=== PATIENT | female | born 1945 | race Caucasian/White ===

== ENCOUNTER 2016-04-18 05:39 | Inpatient (IN) | payer OTHER, MEDICARE ==
[2016-04-18] MEDS ORDERED: CHLORHEXIDINE GLUC HIBICLENS 118 ML BTL TP ONE (06:00)
[2016-04-18] MEDS ORDERED: ceFAZolin 2 GM/DEXTROSE 100 ML IV ONE (06:00)
[2016-04-18] MEDS ORDERED: DEXAMETHASONE 10 MG/ML VIAL IVP ONE (06:00)
[2016-04-18] MEDS ORDERED: LIDOCAINE 1% 5 ML SDV ID PRN (06:07)
[2016-04-18] MEDS ORDERED: LR 1,000 ML IV ONE (06:07)
[2016-04-18 06:53] LABS: % IMMATURE GRANULYOCYTES 0.3 % (0.0-1.1); ABSOLUTE IMMATURE GRANULOCYTES 0.02 10^3/uL (0.00-0.10); ADD DIFF? NO; ADD MORPH? NO; ADD SCAN? NO; ATYPICAL LYMPHOCYTE FLAG 0 (0-99); FRAGMENT RBC FLAG 0 (0-99); HEMATOCRIT 39.9 % (38.0-47.0); HEMOGLOBIN 13.5 g/dL (12.6-16.3); LEFT SHIFT FLG 0 (0-99); LIPEMIA HEMOLYSIS FLAG 90 (0-99); MEAN CELL HEMOGLOBIN 30.5 pg (27.9-34.1); MEAN CELL HEMOGLOBIN CONCENTR. 33.8 g/dL (32.4-36.7); MEAN CELL VOLUME 90.3 fL (81.5-99.8); MEAN PLATELET VOLUME 9.2 fL (8.7-11.7); PLATELET CLUMPS FLAG 0 (0-99); PLATELET COUNT 267 10^3/uL (150-400); RED BLOOD CELL COUNT 4.42 10^6/uL (4.18-5.33); RED CELL DISTRIBUTION WIDTH 12.8 % (11.5-15.2)
[2016-04-18] MEDS ORDERED: BUPIVACAINE/EPI 0.25% 30 ML SDV ONE (07:00)
[2016-04-18] MEDS ORDERED: BACITRACIN 50,000 UNITS/10 ML SYR IRR ONE (07:00)
[2016-04-18] MEDS ORDERED: THROMBIN (RECOMBINANT) 5,000 UNIT VIAL TP ONE (07:00)
[2016-04-18] MEDS ORDERED: ALBUMIN 5% 250 ML BOTTLE IV ONE (07:01)
[2016-04-18] MEDS ORDERED: PROPOFOL/EMULSION 500 MG/50 ML BOTTLE IV ONE ×2 (07:05→07:11)
[2016-04-18] MEDS ORDERED: fentaNYL 250 MCG/5 ML INJ ONE (07:05)
[2016-04-18] MEDS ORDERED: DEXMEDETOMIDINE HCL 200 MCG/2 ML VIAL IV ONE (07:09)
[2016-04-18] MEDS ORDERED: MIDAZOLAM 2 MG/2 ML VIAL ONE (07:16)
[2016-04-18] MEDS ORDERED: METOCLOPRAMIDE 10 MG/2 ML VIAL ONE (07:18)
[2016-04-18] MEDS ORDERED: ONDANSETRON 4 MG/2 ML VIAL ONE (07:18)
[2016-04-18] MEDS ORDERED: ROCURONIUM 50 MG/5 ML VIAL ONE (07:18)
[2016-04-18] MEDS ORDERED: SUCCINYLCHOLINE CHLORIDE*ANESTHESIA ONLY*200 MG/10 ML SYR IVP ONE (07:18)
[2016-04-18] MEDS ORDERED: GLYCOPYRROLATE 0.2 MG/1 ML VIAL ONE (07:18)
[2016-04-18] MEDS ORDERED: DIAZEPAM 10 MG/2 ML SYR ONE (07:42)
[2016-04-18 08:20] LABS: ANION GAP 7 mEq/L (8-16); CALCIUM 8.6 mg/dL (8.5-10.4); CARBON DIOXIDE 25 mEq/l (22-31); CHLORIDE 107 mEq/L (97-110); CREATININE 0.7 mg/dL (0.6-1.0); GLOMERULAR FILTRATION RATE > 60; GLUCOSE 99 mg/dL (70-100); POTASSIUM 4.6 mEq/L (3.5-5.2); SODIUM 139 mEq/L (134-144)
[2016-04-18] MEDS ORDERED: AMINOCAPROIC ACID IV ONE (08:30)
[2016-04-18] MEDS ORDERED: NS IV ONE (08:30)
[2016-04-18] MEDS ORDERED: D5W IV ONE (08:30)
[2016-04-18] MEDS ORDERED: DESMOPRESSIN ACETATE IV ONE (08:30)
[2016-04-18] MEDS ORDERED: epHEDrine SULFATE 10 MG/ML SYR ONE ×2 (09:05→09:22)
[2016-04-18] MEDS ORDERED: PHENYLEPHRINE HCL 100 MCG/ML SYR ONE (09:36)
[2016-04-18] MEDS ORDERED: PROPOFOL 200 MG/20 ML VIAL ONE (10:16)
[2016-04-18] MEDS ORDERED: BISACODYL 10 MG SUPP PR PRN (10:50)
[2016-04-18] MEDS ORDERED: ONDANSETRON DISINTEGRATING 4 MG TAB PO PRN (10:50)
[2016-04-18] MEDS ORDERED: LACTULOSE 20 GM/30 ML UDCUP PO PRN (10:50)
[2016-04-18] MEDS ORDERED: DIAZEPAM 10 MG/2 ML SYR IVP PRN (10:50)
[2016-04-18] MEDS ORDERED: ACETAMINOPHEN 325 MG TAB PO PRN (10:50)
[2016-04-18] MEDS ORDERED: ONDANSETRON 4 MG/2 ML VIAL IVP PRN (10:50)
[2016-04-18] MEDS ORDERED: HYDROCODONE/APAP 10/325 TAB PO PRN (10:50)
[2016-04-18] MEDS ORDERED: MAGNESIUM HYDROXIDE 30 ML UDCUP PO PRN (10:50)
--- NOTE | 2016-04-18 10:56 | POSTOPPROG ---
Post Op Note Date of Operation: 04/18/16 Surgeon: Jeff Ashton Blanket Cutter Hand: Kapil Anesthesiologist: Ant Anesthesia: GET(General Endotracheal) Pre-op Diagnosis: cervical stenosis Post-op Diagnosis: same Indication: neck pain, myelopathy Procedure: C3/4, 4/5, 5/6 ACDF Findings: DJD/stenosis Inf/Abcess present in the surg proc area at time of surgery?: No EBL: 50-100 Complications: None Drains: Miguelito Salazar (anterior cervical)
--- NOTE | 2016-04-18 10:57 | SOAPPROG ---
SOAP Progress Note Assessment/Plan: Assessment: 70 yo F sp C3-6 ACDF Plan: stable to 3N for obs PT/OT hard collar please call with neuro changes 04/18/16 10:56 Subjective: + neck pain, no arm pain. Objective: Laboratory Results 04/18/16 06:30 04/18/16 07:40 somnolent PERRL, EOMI, no facial droop ADRI x4 + light touch ICD10 Worksheet Patient Problems: Problems Problem Status Diagnosed Fusion of spine of cervical region Acute - ICD10 Problem Qualifiers (1) Fusion of spine of cervical region
[2016-04-18] MEDS ORDERED: fentaNYL 100 MCG/2 ML INJ ONE ×3 (11:01→12:39)
--- NOTE | 2016-04-18 11:21 | DX ---
Fluoroscopy for Intraoperative Localization 8:04 a.m. Indication: Cervical spine fusion Fluoroscopy time: 16.4 seconds. Dose: 2.96 mGy. Technique: Two crosstable intraoperative views. Comparison: MRI cervical spine dated February 26, 2016 Findings: A 4 level anterior cervical diskectomy and fusion construct is in place. Impression: Fluoroscopy provided for intraoperative localization.
--- NOTE | 2016-04-18 11:22 | GOP ---
[f rep st] OPERATIVE REPORT DATE OF OPERATION: 04/18/2016 SURGEON: Jeff Ashton MD MEDIA RELATIONS DIRECTOR: Toño Dick PA-C ANESTHESIA: General endotracheal. PREOPERATIVE DIAGNOSIS: Severe multilevel cervical spondylosis and severe stenosis with spinal cord compression. POSTOPERATIVE DIAGNOSIS: Severe multilevel cervical spondylosis and severe stenosis with spinal cord compression. PROCEDURE PERFORMED: 1. Partial C4 and C5 vertebral corpectomies. 2. Mini open exposure for complete C3-4, C4-5, and C5-6 anterior cervical diskectomy and arthrodesis with 3 structural PEEK interbody spacers, local autograft, and placement of a CastleLoc-P LnK anteri or cervical plate from C3 through C6 with self-drilling screws. Use of intraoperative microscopy and fluoroscopy. FINDINGS: ESTIMATED BLOOD LOSS: 250 cc. INDICATIONS: The patient is a 70-year-old woman with multilevel cervical spondylosis and severe sten osis with spinal cord compression who presents for surgical decompression and stabilization. DESCRIPTION OF PROCEDURE: After informed consent was obtained, the patient was taken to the operatin g room and placed in the supine position with the head in the halter retractor system. The anterior cervical region was prepped and draped in a sterile fashion. After fluoroscopic localization of the correct levels, the subcutaneous and intramuscular tissues were infiltrated with local anesthesia. A horizontal incision was then created at the level of the C4-5 interspace, after fluoroscopic localiz ation. The dissection was then carried through the platysmal layer using monopolar electrocautery an d carried in the avascular plane to the sternocleidomastoid and carotid sheath laterally, and the str ap muscles, trachea, and esophagus medially, down to the prevertebral fascia. Note that there was qu ite a bit of fibrotic tissue, almost like the patient had been irradiated or something before, and th e tissue planes were not entirely obvious and were difficult to dissect out. I was able to carefully identify the prevertebral fascia, and the C3-4, C4-5, and C5-6 interspaces were carefully identified and re-verified using intraoperative fluoroscopy. The osteophytes were carefully removed and harves kale for local autograft. The [place] distraction pins were then serially inserted, first at C3-4, the n at C4-5, and then at C5-6, during which time complete diskectomies were performed with preparation of endplates and removal of the posterior longitudinal ligament at each level. Bilateral foraminotom ies were performed. There was an extensive amount of irregularity in the endplates at all of the lev els and Schmorl nodes, which required extensive drilling. Because the C4 and C5 vertebral bodies had endplates above and below that required an extensive amount of drilling, we ended up with about 50% of the vertebral body drilled away, in order to adequately decompress the spinal canal and achieve go od fusion surfaces for partial C4 and C5 vertebral corpectomies. Following adequate decompression, t he wound was copiously irrigated with antibiotic irrigation, and meticulous hemostasis was achieved. The patient was slightly more oozy than normal, given her history of taking Aleve and DDAVP was give n. Appropriately sized structural PEEK interbody spacers packed with locally harvest autograft in [facility] were then placed at the C3-4, C4-5, and C5-6 interspaces while they were each under distract ion. The distraction was removed and an appropriately sized LnK CastleLoc-P anterior cervical plate was then placed and secured from C3 through C6 with self-drilling screws. There was barely enough ve rtebral body at C4 and C5 to place the screws. I actually left the right C4 screw out because I coul d not get a good angle to stay in what was remaining of the vertebral body, due to the partial verteb ral corpectomy. Following placement of the screws and verification of good positioning using biplana r fluoroscopy, the locking mechanisms were engaged. A drain was placed. The subcutaneous and intram uscular tissues were re-infiltrated with local anesthesia. The remaining local autograft was gently packed in the anterior hole of the plate, and the wound was closed in a layered fashion using interru pted Vicryl sutures followed by Steri-Strips on the skin. COMPLICATIONS: None. DISPOSITION: The patient is currently in the process of being repositioned for extubation. /[id number]/MODL
[2016-04-18] MEDS: HYDROmorphONE/DILAUDID 1 MG/ML SYR IVP PRN ×2 (13:49→20:37)
[2016-04-18] MEDS: NS W/ 20 KCl/L 1,000 ML IV SCH (13:51)
[2016-04-18] MEDS: OXYCODONE/APAP 5/325 TAB PO PRN ×2 (16:27→20:36)
[2016-04-18] MEDS: METHOCARBAMOL 750 MG TAB PO PRN (16:28)
[2016-04-18] MEDS: DIAZEPAM 5 MG TAB PO PRN (16:28)
[2016-04-18] MEDS: POLYETHYLENE GLYCOL 3350 17 GM PKT PO SCH ×2 (16:32→20:37)
--- NOTE | 2016-04-18 17:50 | CPEKG ---
Heart Rate: 101 RR Interval: 594 P-R Interval: 196 QRSD Interval: 98 QT Interval: 380 QTC Interval: 493 P Edwards: 69 QRS Edwards: 76 T Wave Edwards: 14 EKG Severity - BORDERLINE ECG - EKG Impression: SINUS TACHYCARDIA EKG Impression: BORDERLINE INFERIOR Q WAVES EKG Impression: BORDERLINE PROLONGED QT INTERVAL Electronically Signed By: Nicole Bueno 19-Apr-2016 07:05:52
[2016-04-18] MEDS ORDERED: ENALAPRILAT DIHYDRATE 1.25 MG/ML VIAL IVP PRN (18:15)
--- NOTE | 2016-04-18 19:09 | GCON ---
[f rep st] CONSULTATION INTERNAL MEDICINE CONSULTATION DATE OF CONSULTATION: 04/18/2016 REFERRING PHYSICIAN: Jeff Ashton MD REASON FOR CONSULTATION: Medical opinion regarding postoperative hypertension. HISTORY: The patient is a 70-year-old female, who has cervical spondylosis with severe spinal stenos is, cervical spinal stenosis and cord compression, for which she has undergone surgery earlier today with Dr. Ashton. She is now having significant postoperative hypertension and we were asked f or opinion. She is quite asymptomatic. She reports significant blood pressure elevations after her last surgery as well. She was discharged on blood pressure medications; however, when she went back to her usual activities, she was feeling very lightheaded and was fainting, and blood pressure was ve ry low, so blood pressure medications were stopped. She monitors her blood pressure at home closely and has a blood pressure cuff, and when she is home and relaxed her systolic blood pressures are 113. When she sees her primary care doctor, systolic blood pressures are often greater than 140. Prior to surgery, she was feeling well and had no recent illnesses, and her only complaint was for neck haily n. Postoperatively, she is uncomfortable, having currently 6/10 postoperative neck pain. She is oth erwise without complaint. PAST MEDICAL HISTORY: 1. Obesity. 2. Hypertension. 3. DVT status post lumbar spine surgery 2012. MEDICATIONS: Please see computer record for full detailed list. ALLERGIES: No known drug allergies. SOCIAL HISTORY: No smoking. Social alcohol. She lives in [facility] in [facility], but her daughter lives here in [place] and she has come here specifically to have surgery performed. REVIEW OF SYSTEMS: Complete review of systems obtained. Review of systems is negative on constitutio nal, HEENT, GI, pulmonary, cardiovascular, , hematology, musculoskeletal, endocrine, psychiatry, ex cept for positives as noted in HPI. FAMILY HISTORY: Reviewed, noncontributory to presenting complaint. PHYSICAL EXAMINATION: GENERAL: Well developed, well nourished female, in no acute distress. VITAL SIGNS: Temperature is 36.6, pulse 117, blood pressure 167/97, satting 96% on 2 L. EYES: Normal con junctivae. Pupils equally round and reactive to light. ENT: Normal ears and nose. Hearing intact. Normal lips and teeth. Oropharynx moist. NECK: Trachea midline. No thyromegaly. CHEST: Normal effort. Lungs clear to auscultation bilaterally. CARDIOVASCULAR: Regular rhythm. No murmur. No lower extremity edema. ABDOMEN: Soft, nontender. No hepatosplenomegaly. SKIN: Warm, dry, intact throughout without rash. MUSCULOSKELETAL: No cyanosis, clubbing. Strength is 5/5 upper and lower e xtremities. NEURO: Cranial nerves intact. Normal sensation to light touch. PSYCH: Alert and orie nted x3. Normal mood and affect. Normal judgment. Normal memory. LABS: White count 6.22, hematocrit 39.9, platelets 267. Sodium 139, potassium 4.6, chloride 107, bi carb 25, BUN 17, creatinine 0.7, glucose 99. IMAGING: EKG viewed by me and my personal interpretation is normal sinus rhythm, no ST or T-wave alona nges. This case was discussed with Dr. Jeff Ashton. He requests assistance regarding postoperative significant hypertension. Surgery otherwise went routinely earlier today. ASSESSMENT AND PLAN: 1. Hypertension: I suspect she does not have a baseline hypertensive state. She may have an elemen t of white coat hypertension based on her history. We will therefore treat her blood pressures as an inpatient very gently. Will prescribe IV enalaprilat only for extreme blood pressure elevation. I do not think she needs to be discharged on any blood pressure medications at hospital discharge. She can follow up locally with her primary care doctor here in [place]. 2. History of deep venous thrombosis after previous back surgery: That puts her at high risk for re current DVT after this surgery. DVT prophylaxis should be initiated as soon as okay with Neurosurger y. 3. Obesity: BMI 34. Thank you very much for this consultation. Hospitalist Medicine will continue to follow along while she remains as an inpatient. /[id number]/MODL
[2016-04-18] MEDS: FAMOTIDINE 20 MG/NACL 50 ML IV SCH (20:35)
[2016-04-18] MEDS: SENNOSIDES/DOCUSATE SODIUM TAB PO SCH (20:37)
[2016-04-19] MEDS: OXYCODONE/APAP 5/325 TAB PO PRN ×3 (00:03→19:47)
[2016-04-19] MEDS: HYDROmorphONE/DILAUDID 1 MG/ML SYR IVP PRN ×5 (00:04→20:44)
[2016-04-19] MEDS: DIAZEPAM 5 MG TAB PO PRN ×4 (00:04→18:48)
[2016-04-19] MEDS: NS W/ 20 KCl/L 1,000 ML IV SCH (02:39)
[2016-04-19 05:12] LABS: % IMMATURE GRANULYOCYTES 0.4 % (0.0-1.1); ABSOLUTE IMMATURE GRANULOCYTES 0.04 10^3/uL (0.00-0.10); ADD DIFF? NO; ADD MORPH? NO; ADD SCAN? NO; ATYPICAL LYMPHOCYTE FLAG 10 (0-99); FRAGMENT RBC FLAG 0 (0-99); HEMATOCRIT 33.1 % (38.0-47.0); HEMOGLOBIN 10.8 g/dL (12.6-16.3); LEFT SHIFT FLG 0 (0-99); LIPEMIA HEMOLYSIS FLAG 80 (0-99); MEAN CELL HEMOGLOBIN 30.8 pg (27.9-34.1); MEAN CELL HEMOGLOBIN CONCENTR. 32.6 g/dL (32.4-36.7); MEAN CELL VOLUME 94.3 fL (81.5-99.8); MEAN PLATELET VOLUME 9.4 fL (8.7-11.7); PLATELET CLUMPS FLAG 0 (0-99); PLATELET COUNT 207 10^3/uL (150-400); RED BLOOD CELL COUNT 3.51 10^6/uL (4.18-5.33)
[2016-04-19 05:15] LABS: ANION GAP 8 mEq/L (8-16); CALCIUM 8.4 mg/dL (8.5-10.4); CARBON DIOXIDE 25 mEq/l (22-31); CHLORIDE 102 mEq/L (97-110); CREATININE 0.7 mg/dL (0.6-1.0); GLOMERULAR FILTRATION RATE > 60; GLUCOSE 97 mg/dL (70-100); POTASSIUM 4.3 mEq/L (3.5-5.2); SODIUM 135 mEq/L (134-144)
[2016-04-19] MEDS: SENNOSIDES/DOCUSATE SODIUM TAB PO SCH ×2 (08:27→19:46)
[2016-04-19] MEDS: FAMOTIDINE 20 MG/NACL 50 ML IV SCH ×2 (08:30→19:47)
[2016-04-19] MEDS: POLYETHYLENE GLYCOL 3350 17 GM PKT PO SCH ×3 (08:32→20:44)
--- NOTE | 2016-04-19 10:16 | NEUSURGPN ---
Date of Surgery: 04/18/16 Post Op Day: 1 Assessment/Plan: POD #1 sp C3-6 ACDF. Has posterior neck pain typical of this surgery. Hard collar in place Swallowing water only, thus far no change in preop symptoms Plan: Soft diet ST/PT/OT evals today Cervical xrays today continue JHONATHAN drain Subjective: in bed, sitting up. C/O posterior neck pain. Does not notice improvement of her preop symptoms at this time. Swallowing water so far. Objective: JHONATHAN: 270 Drssing: CDI Neuro: right arm supination/biceps weakness unchanged sens +LT throughout Urinary Catheter in Place: No - JHONATHAN Drain Subfascial Wound Drainage (ml): 240 Neurosurgery Physical Exam - Vitals, I&O, Labs I and O 04/18/16 04/19/16 04/20/16 05:59 05:59 05:59 Intake Total 4050 Output Total 1070 Balance 2980 Weight 88.451 kg 88.4 kg Intake: Oral (ml) 950 IV Intake (ml) 2100 IV Infused (ml) 1000 ceFAZolin 1 GM/DEXTROSE 50 50 ml @ 200 mls/hr IV Q8HRS NENA Rx#:[id number] Famotidine 20 mg/NaCl 50 50 ml @ 200 mls/hr IV Q12HRS NENA Rx#:[id number] NS W/ 20 KCl/L 1,000 ml @ 900 75 mls/hr IV CONT NENA Rx #:[id number] Output: Urine (ml) 650 Toilet 650 Estimated Blood Loss (ml) 150 Wound Drainage (ml) 270 Miguelito Salazar 270 Other: Number of Voids Toilet 1 Vital Signs Temp Pulse Resp BP Pulse Ox 36.1 C 76 17 157/83 H 98 04/19/16 07:52 04/19/16 07:52 04/19/16 07:52 04/19/16 07:52 04/19/16 07:52 Laboratory Results 04/19/16 04:15 04/19/16 04:15 ICD10 Worksheet Patient Problems: Problems Problem Status Diagnosed Fusion of spine of cervical region Acute
[2016-04-19] MEDS ORDERED: oxyCODONE IR 5 MG TAB PO PRN ×2 (10:36→10:43)
[2016-04-19] MEDS: oxyCODONE IR 5 MG TAB PO PRN ×2 (10:55→15:18)
[2016-04-19] MEDS: diphenhydrAMINE 25 MG CAP PO PRN ×2 (10:59→18:47)
[2016-04-19] MEDS: LIDOCAINE 5% 1 EA PATCH TD SCH (11:00)
--- NOTE | 2016-04-19 13:04 | DX ---
Cervical Spine, Two Views History: Follow up fusion. Comparison: None available. Findings: Alignment is anatomic. An anterior compression plate with transvertebral body screws and in terbody bone plugs is present between C3 and C6. There is no evidence for plate fracture or loosening . Interbody bone plugs are in excellent position.. There is prominent prevertebral soft tissue swelli ng, up to 2 cm in front of the lower cervical region. An anterior left surgical drain is present. Deg enerative narrowing is present above and below the fusion of the C2-C3 and C6-C7 disk spaces.. Impression:1. Excellent postoperative alignment. 2. Prominent prevertebral soft tissue swelling. Results called to Toño Dick at 1 p.m.
[2016-04-19] MEDS: ENOXAPARIN 40 MG/0.4 ML SYR SC SCH (13:16)
--- NOTE | 2016-04-19 14:30 | HOSPPROG ---
Hospitalist Progress Note Assessment/Plan: 70-year-old female in the postoperative setting. This is my 1st encounter with the patient, chart reviewed. # hypertension No aggressive intervention at this time Continue to monitor blood pressure during this hospital course Patient wishes to not introduce any antihypertensive medications Suspect the patient is mildly hypertensive at baseline Current hypertension is likely related to pain and anxiety Follow up with PCP in the outpatient setting # history of DVT Lovenox initiated per Neurosurgery Continue to watch closely # pain Continue supportive management # disposition Per Neurosurgery Continue inpatient evaluation Subjective: Up in bed. Complains of itchy head. Pain well controlled currently. Objective: Vital Signs Temp Pulse Resp BP Pulse Ox 36.9 C 75 17 153/78 H 95 04/19/16 11:13 04/19/16 11:13 04/19/16 11:13 04/19/16 11:13 04/19/16 11:13 Laboratory Results 04/19/16 04:15 04/19/16 04:15 04/18/16 04/19/16 04/20/16 05:59 05:59 05:59 Intake Total 4050 Output Total 1070 240 Balance 2980 -240 - Physical Exam Constitutional: appears nourished, obese, uncomfortable Eyes: PERRL, anicteric sclera, EOMI Ears, Nose, Mouth, Throat: moist mucous membranes, hearing normal, ears appear normal Cardiovascular: regular rate and rhythym, No JVD, No tachycardia Respiratory: no respiratory distress, no rales or rhonchi, reduced air movement Gastrointestinal: No tenderness, No ascites, No guarding Skin: warm, normal color, No erythema Musculoskeletal: no joint effusions, generalized weakness, No normal joint ROM Neurologic: AAOx3 Psychiatric: interacting appropriately, not anxious, not encephalopathic ICD10 Worksheet Patient Problems: Problems Problem Status Diagnosed Fusion of spine of cervical region Acute
[2016-04-19] MEDS ORDERED: DEXAMETHASONE VARIABLE DOSE IVP ONE (15:13)
[2016-04-19] MEDS ORDERED: DEXAMETHASONE 10 MG/ML VIAL IVP ONE (15:30)
[2016-04-19] MEDS: PATCH REMOVAL 1 EA PATCH TD SCH (21:45)
[2016-04-19] MEDS: METHOCARBAMOL 750 MG TAB PO PRN (22:27)
[2016-04-20] MEDS: OXYCODONE/APAP 5/325 TAB PO PRN ×3 (05:11→18:44)
[2016-04-20] MEDS: METHOCARBAMOL 750 MG TAB PO PRN ×4 (05:11→18:44)
[2016-04-20] MEDS: ENOXAPARIN 40 MG/0.4 ML SYR SC SCH (08:05)
[2016-04-20] MEDS: SENNOSIDES/DOCUSATE SODIUM TAB PO SCH ×2 (08:06→20:27)
[2016-04-20] MEDS: FAMOTIDINE 20 MG/NACL 50 ML IV SCH (08:07)
[2016-04-20] MEDS: POLYETHYLENE GLYCOL 3350 17 GM PKT PO SCH ×3 (08:07→20:28)
[2016-04-20] MEDS: DEXAMETHASONE 4 MG TAB PO SCH ×2 (08:07→20:27)
[2016-04-20] MEDS: FAMOTIDINE 20 MG TAB PO SCH ×2 (09:04→20:27)
[2016-04-20] MEDS: LIDOCAINE 5% 1 EA PATCH TD SCH (09:04)
--- NOTE | 2016-04-20 13:57 | HOSPPROG ---
Hospitalist Progress Note Assessment/Plan: 70-y/o F with PMH DVT, who was admitted for elective C3-6 ACDF which was done 04/18/16. Found to have htn post-op. #. elevated blood pressures: improved this AM pt prefers no medication therapy at this point follow up as outpt #. h/o DVT: started on Enox #. pain: currently controlled on PO medications. OK to discharge from medical perspective. Subjective: Reports pain under control currently. Had BM this AM. Some pain with swallowing. Objective: Vital Signs Temp Pulse Resp BP Pulse Ox 97.4 F 73 16 147/78 H 96 04/20/16 07:14 04/20/16 07:14 04/20/16 07:14 04/20/16 07:14 04/20/16 07:14 Laboratory Results 04/19/16 04:15 04/19/16 04:15 04/19/16 04/20/16 04/21/16 05:59 05:59 05:59 Intake Total 4050 850 Output Total 1070 2230 Balance 2980 -1380 - Physical Exam Constitutional: no apparent distress, appears nourished Eyes: PERRL, anicteric sclera Cardiovascular: regular rate and rhythym, no murmur, rub, or gallop Respiratory: no respiratory distress, no rales or rhonchi Gastrointestinal: normoactive bowel sounds ICD10 Worksheet Patient Problems: Problems Problem Status Diagnosed Fusion of spine of cervical region Acute
[2016-04-20] MEDS: oxyCODONE IR 5 MG TAB PO PRN ×2 (14:30→22:59)
--- NOTE | 2016-04-20 15:07 | NEUSURGPN ---
Assessment/Plan: POD #2 sp C3-6 ACDF. Has posterior neck pain typical of this surgery. Hard collar in place Swallowing is improving slowly no change in preop symptoms ambulating well Plan: Soft diet - still not able to eat all foods. encourage nutrition. ST/PT/OT working with patient Cervical xrays show stable hardware DC JHONATHAN drain Plan for DC in am Subjective: Pt resting in bed. Was up walking halls. States still having difficulty getting down foods. Not eating much. Objective: AAOx3 NAD VSS MAEx4 Motor 5/5 BUE/BLE +LT Incision cdi JPx1 - scant serous dc in bulb Urinary Catheter in Place: No - Physician Discussed Patient with .: Daisha Neurosurgery Physical Exam - Vitals, I&O, Labs I and O 04/19/16 04/20/16 04/21/16 05:59 05:59 05:59 Intake Total 4050 850 Output Total 1070 2230 Balance 2980 -1380 Weight 88.4 kg Intake: Oral (ml) 950 250 IV Intake (ml) 2100 IV Infused (ml) 1000 600 ceFAZolin 1 GM/DEXTROSE 50 50 ml @ 200 mls/hr IV Q8HRS NENA Rx#:[id number] Famotidine 20 mg/NaCl 50 50 100 ml @ 200 mls/hr IV Q12HRS NENA Rx#:[id number] NS W/ 20 KCl/L 1,000 ml @ 900 500 75 mls/hr IV CONT NENA Rx #:[id number] Output: Urine (ml) 650 1950 Toilet 650 1950 Estimated Blood Loss (ml) 150 Wound Drainage (ml) 240 Subfascial 240 Wound Drainage (ml) 270 40 Miguelito Salazar 270 40 Other: Intake Quantity Yes Sufficient Number of Voids Toilet 1 1 Number of Stools Toilet 1 Vital Signs Temp Pulse Resp BP Pulse Ox 36.3 C 73 16 147/78 H 96 04/20/16 07:14 04/20/16 07:14 04/20/16 07:14 04/20/16 07:14 04/20/16 07:14 Laboratory Results 04/19/16 04:15 04/19/16 04:15 ICD10 Worksheet Patient Problems: Problems Problem Status Diagnosed Fusion of spine of cervical region Acute
[2016-04-20] MEDS: diphenhydrAMINE 25 MG CAP PO PRN (20:27)
[2016-04-20] MEDS: PATCH REMOVAL 1 EA PATCH TD SCH (20:35)
--- NOTE | 2016-04-21 07:25 | NEUSURGPN ---
Assessment/Plan: POD #3 sp C3-6 ACDF. Has posterior neck pain typical of this surgery. Hard collar in place Swallowing is improving slowly no change in preop symptoms ambulating well Plan: Soft diet - swallowing is improving ST/PT/OT working with patient Cervical xrays show stable hardware DC to home Subjective: Pt resting in bed, states she was able to eat dinner last night. Ready to go home. Objective: AAOx3 NAD VSS MAEx4 Motor 5/5 BUE C collar on Incision -dressed cdi Urinary Catheter in Place: No Neurosurgery Physical Exam - Vitals, I&O, Labs I and O 04/20/16 04/21/16 04/22/16 05:59 05:59 05:59 Intake Total 850 1700 Output Total 2230 2360 800 Balance -1380 -660 -800 Intake: Oral (ml) 250 1700 IV Infused (ml) 600 Famotidine 20 mg/NaCl 50 100 ml @ 200 mls/hr IV Q12HRS NENA Rx#:[id number] NS W/ 20 KCl/L 1,000 ml @ 500 75 mls/hr IV CONT NENA Rx #:[id number] Output: Urine (ml) 1950 2350 800 Toilet 1950 2350 800 Wound Drainage (ml) 240 Subfascial 240 Wound Drainage (ml) 40 10 Miguelito Salazar 40 10 Other: Intake Quantity Yes Sufficient Number of Voids Toilet 1 3 2 Number of Stools Toilet 1 Vital Signs Temp Pulse Resp BP Pulse Ox 37.0 C 84 18 127/103 H 96 04/20/16 23:01 04/20/16 23:01 04/20/16 19:17 04/20/16 23:01 04/20/16 23:01 Laboratory Results 04/19/16 04:15 04/19/16 04:15 ICD10 Worksheet Patient Problems: Problems Problem Status Diagnosed Fusion of spine of cervical region Acute
[2016-04-21] MEDS: oxyCODONE IR 5 MG TAB PO PRN (07:37)
[2016-04-21] MEDS: ENOXAPARIN 40 MG/0.4 ML SYR SC SCH (07:38)
[2016-04-21] MEDS: FAMOTIDINE 20 MG TAB PO SCH (07:38)
[2016-04-21] MEDS: POLYETHYLENE GLYCOL 3350 17 GM PKT PO SCH (07:38)
[2016-04-21] MEDS: SENNOSIDES/DOCUSATE SODIUM TAB PO SCH (07:38)
[2016-04-21] MEDS: LIDOCAINE 5% 1 EA PATCH TD SCH (07:38)
[2016-04-21 08:31] VITALS: BP 142/87; PULSE 109; RESP 16; TEMP 98.2; O2SAT 97
[2016-04-21] MEDS ORDERED: DEXAMETHASONE 2 MG TAB PO SCH (09:00)
[2016-04-21] MEDS ORDERED: PNEUMOC 13-VAL CONJ-DIP CRM/PF 0.5 ML SYR IM ONE (10:12)
[2016-04-21] MEDS ORDERED: FLU VACC TS 2016-17(65YR+)/PF 0.5 ML SYR (FLUZONE HIGH DOSE) IM ONE (10:12)
--- NOTE | 2016-05-01 11:18 | GDS ---
[f rep st] DISCHARGE SUMMARY ADMISSION DIAGNOSIS: Cervical stenosis. DISCHARGE DIAGNOSIS: Status post C3-4, C4-5, C5-6 anterior cervical diskectomy and fusion. HISTORY AND PHYSICAL: Please see admission history and physical course. Patient is a 70-year-old f emale who was found to have underlying cervical stenosis. She was taken to the operating room on where she underwent a C3-4, C4-5, C5-6 anterior cervical diskectomy and arthrodesis. There were no intraoperative complications. She was admitted to the floor for observation. On the floor , she was tolerating regular diet and her pain was controlled with p.o. pain medications. She was f ollowed by Medicine for her hypertension. She was discharged home in stable condition on 04/21/2016 . Patient was discharged with cervical fusion instructions and recommended she return for neurosurg ical followup appointment in 10-14 days. /[id number]/MODL
== END 2016-04-21 11:10 | disposition home or self-care (01) | DRG 473 ==
LOC: F2N 05:39 → F3N 13:21
PROVIDERS: ADMIT Neurological Surgery; ATTEND Neurological Surgery
PROC: 0PB30ZZ Excision of Cervical Vertebra, Open Approach (ICD-10-PCS; principal; 2016-04-18 07:15)
PROC: 0RT30ZZ Resection of Cervical Vertebral Disc, Open Approach (ICD-10-PCS; principal; 2016-04-18 07:15)
PROC: 4A1004G Monitoring of Central Nervous Electrical Activity, Intraoperative, Open Approach (ICD-10-PCS; principal; 2016-04-18 07:15)
PROC: 00NW0ZZ Release Cervical Spinal Cord, Open Approach (ICD-10-PCS; principal; 2016-04-18 07:15)
PROC: 0RG20A0 Fusion of 2 or more Cervical Vertebral Joints with Interbody Fusion Device, Anterior Approach, Anterior Column, Open Approach (ICD-10-PCS; principal; 2016-04-18 07:15)
DX: M47.12 Other spondylosis with myelopathy, cervical region (principal); I10 Essential (primary) hypertension; E66.9 Obesity, unspecified; Z86.718 Personal history of other venous thrombosis and embolism; Z68.34 Body mass index [BMI] 34.0-34.9, adult; Z23 Encounter for immunization
CPT/HCPCS: 92526-GN; 92610-GN; 97161-GP; 97165-GO; C1713; G0008; G0009; G8978-GP-CI; G8979-GP-CI; G8980-GP-CI; G8987-GO-CI; G8988-GO-CI; G8989-GO-CI; G8996-GN-CJ; G8997-GN-CI; J0330; J0690; J1170; J1200; J1650; J2250; J2370; J2405; J2597; J2704; J2765; J3010; P9035; P9041

== ENCOUNTER 2016-05-10 05:18 | Inpatient (IN) | payer OTHER, MEDICARE ==
[2016-05-10] MEDS ORDERED: LIDOCAINE 1% 5 ML SDV ONE (05:46)
[2016-05-10] MEDS ORDERED: ceFAZolin 2 GM/DEXTROSE 100 ML IV ONE ×2 (06:00→07:00)
[2016-05-10] MEDS ORDERED: DEXAMETHASONE 10 MG/ML VIAL IVP ONE ×2 (06:00→07:00)
[2016-05-10] MEDS ORDERED: THROMBIN (RECOMBINANT) 20,000 UNIT VIAL TP ONE (06:48)
[2016-05-10] MEDS ORDERED: BACITRACIN 50,000 UNITS/10 ML SYR IRR ONE ×3 (06:49→13:52)
[2016-05-10] MEDS ORDERED: BUPIVACAINE 0.5% 30 ML SDV ONE (06:49)
[2016-05-10] MEDS ORDERED: CITRATE DEXTROSE SOLN 500 ML BAG ONE (06:49)
[2016-05-10] MEDS ORDERED: fentaNYL 100 MCG/2 ML INJ ONE ×3 (07:09→16:42)
[2016-05-10] MEDS ORDERED: ONDANSETRON 4 MG/2 ML VIAL ONE (07:09)
[2016-05-10] MEDS ORDERED: DEXAMETHASONE 4 MG/ML VIAL ONE (07:09)
[2016-05-10] MEDS ORDERED: HYDROmorphONE/DILAUDID 2 MG/ML INJ ONE (07:09)
[2016-05-10] MEDS ORDERED: LIDOCAINE 2% 100 MG/5 ML SYR IVP ONE (07:09)
[2016-05-10] MEDS ORDERED: PROPOFOL 200 MG/20 ML VIAL ONE (07:09)
[2016-05-10] MEDS ORDERED: ROCURONIUM 50 MG/5 ML VIAL ONE (07:09)
[2016-05-10] MEDS ORDERED: PROPOFOL/EMULSION 500 MG/50 ML BOTTLE IV ONE ×3 (07:09→15:02)
[2016-05-10] MEDS ORDERED: REMIFENTANIL HCL 1 MG VIAL ONE ×3 (07:09→15:02)
[2016-05-10] MEDS ORDERED: MIDAZOLAM 2 MG/2 ML VIAL ONE (07:12)
[2016-05-10] MEDS ORDERED: SKIN ADHESIVE (DERMABOND) 1 EACH TP ONE (10:10)
[2016-05-10] MEDS ORDERED: ceFAZolin 1 GM VIAL ONE ×2 (10:16→15:15)
[2016-05-10] MEDS ORDERED: THROMBIN (RECOMBINANT) 5,000 UNIT VIAL TP ONE ×4 (12:02→14:20)
[2016-05-10] MEDS ORDERED: morphINE PF 5 MG/10 ML INJ ONE (12:43)
--- NOTE | 2016-05-10 15:00 | GOP ---
DATE OF OPERATION: 05/10/2016 SURGEON: Kaushik Sebastian MD NEUROSURGEON: Jeff Ashton MD. HYDROELECTRIC MECHANIC: Nga Miles PA-C PREOPERATIVE DIAGNOSIS: Chronic back pain. POSTOPERATIVE DIAGNOSIS: Chronic back pain. PROCEDURE PERFORMED: 1. Anterior retroperitoneal spinal exposure. 2. L5-S1 arthrodesis. INDICATIONS: 70-year-old female, taken the operating today for anterior- posterior lumbosacral spinal instrumentation. General surgery has been requested for anterior retroperitoneal spinal exposure. Surgical risks and benefits, including bleeding, infection, bowel injury, ureter injury, as well as major vascular injury were reviewed ahead of time. Neurologic expectations were discussed per Neurosurgical Service. All questions were entertained. She desires to proceed. hardware sales assistant is standard and necessary and customary for the safe performance of this procedure. DESCRIPTION OF PROCEDURE: After general anesthesia was induced. Intraoperative fluoroscopy was used to identify the L5-S1 disc space. A transverse hypogastric incision was created. The left anterior rectus sheath fascia was opened vertically. The transversalis fascia was opened, allowing entrance into the retroperitoneal fat planes. The peritoneal envelope was reflected medially, maintaining the ureter with the visceral contents. The L5- S1 disc space was palpated. The common iliac artery, as well as internal and iliac artery branches were easily separable off the L5-S1 disc space. The middle sacral vessels were divided. The aortic bifurcation, as well as iliac bifurcation, was bluntly off the anterior spinal fascia. An Omni retractor was utilized to hold the visceral contents in place, as well as maintain the vascular structures away. Intraoperative fluoroscopy was identified to confirm the L5-S1 disc space. Care of the case was turned to Dr. Ashton for spinal instrumentation. On completion of the neurosurgical portion of the procedure, the retroperitoneum was reinspected. The iliac artery was noted to be with pulsatile flow. The iliac vein was widely patent. The ureter was confirmed intact. The retroperitoneal contents were allowed to fall into place. The muscle fascia was closed with a running PDS suture. The wound was closed with Monocryl and Dermabond. The patient was subsequently repositioned by the neurosurgical service for the posterior revision. /[id number]/MODL MTDD
[2016-05-10] MEDS ORDERED: BUPIVACAINE 0.25% 30 ML SDV ONE (15:10)
[2016-05-10] MEDS ORDERED: LACTULOSE 20 GM/30 ML UDCUP PO PRN (16:13)
[2016-05-10] MEDS ORDERED: ACETAMINOPHEN 325 MG TAB PO PRN (16:13)
[2016-05-10] MEDS ORDERED: BISACODYL 10 MG SUPP PR PRN (16:13)
[2016-05-10] MEDS ORDERED: ONDANSETRON DISINTEGRATING 4 MG TAB PO PRN (16:13)
[2016-05-10] MEDS ORDERED: DIAZEPAM 10 MG/2 ML SYR IVP PRN (16:13)
[2016-05-10] MEDS ORDERED: NALOXONE HCL 0.4 MG/ML INJ IVP PRN (16:13)
[2016-05-10] MEDS ORDERED: MAG HYDROX/AL HYDROX/SIMETH 30 ML UDCUP PO PRN (16:13)
[2016-05-10] MEDS ORDERED: HYDROCODONE/APAP 10/325 TAB PO PRN (16:13)
[2016-05-10] MEDS ORDERED: MAGNESIUM HYDROXIDE 30 ML UDCUP PO PRN (16:13)
[2016-05-10] MEDS ORDERED: ONDANSETRON 4 MG/2 ML VIAL IVP PRN (16:13)
--- NOTE | 2016-05-10 16:13 | POSTOPPROG ---
Post Op Note Date of Operation: 05/10/16 Surgeon: Jeff Ashton House Manager: Hattie Anesthesiologist: Tutu Chao Anesthesia: GET(General Endotracheal) Pre-op Diagnosis: L5/S1 Pseudarthrosis Post-op Diagnosis: same Indication: Back and leg pain, fractured hardware Procedure: L5/S1 ALIF. L2-S1 hardware removal, L1/2 TLIF, L1-S1 fusion Findings: fractured screws bilaterally at S1. L1/2 DJD/stenosis Inf/Abcess present in the surg proc area at time of surgery?: No EBL: 500-1000 Complications: None Drains: Miguelito Salazar (to bulb suction)
[2016-05-10] MEDS ORDERED: NS W/ 20 KCl/L 1,000 ML IV SCH (16:15)
[2016-05-10 17:10] LABS: HEMATOCRIT 29.6 % (38.0-47.0); HEMOGLOBIN 9.9 g/dL (12.6-16.3)
--- NOTE | 2016-05-10 17:23 | SOAPPROG ---
SOAP Progress Note Assessment/Plan: Assessment: Postop check: right shoulder pain doing well otherwise back pain well controlled Vitals: HR: 111 BP: 112/97 o2: 97% NC Plan: CPM in PACU then transfer to floor per protocol Continue JHONATHAN to bulb suction 05/10/16 17:21 Subjective: awake, alert. back pain well controlled but complains of right shoulder pain Objective: Laboratory Results 05/10/16 16:53 Neuro: FLETCHER, sens +LT follows commands PERRLA ICD10 Worksheet Patient Problems: Problems Problem Status Onset Fusion of spine of cervical region Acute
[2016-05-10 17:26] LABS: ANION GAP 6 mEq/L (8-16); CALCIUM 8.5 mg/dL (8.5-10.4); CARBON DIOXIDE 22 mEq/l (22-31); CHLORIDE 106 mEq/L (97-110); CREATININE 0.7 mg/dL (0.6-1.0); GLOMERULAR FILTRATION RATE > 60; GLUCOSE 198 mg/dL (70-100); POTASSIUM 5.3 mEq/L (3.5-5.2); SODIUM 134 mEq/L (134-144)
[2016-05-10] MEDS: HYDROmorphONE/DILAUDID 1 MG/ML SYR IVP PRN (18:16)
--- NOTE | 2016-05-10 18:45 | GOP ---
DATE OF OPERATION: 05/10/2016 SURGEON: Jeff Ashton MD DIGITAL STRATEGIST SENIOR MANAGER: JAYCEE Alanis ANESTHESIA: General endotracheal. PREOPERATIVE DIAGNOSIS: 1. 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 2. 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 3. Intractable low back pain. 4. Intractable left lower extremity radiculopathy. 5. Severe left L5-S1 neural foraminal encroachment. 6. Failed conservative care. 7. High risk surgical candidate given age of 70 years, comorbidities including morbid obesity and required surgical intervention. POSTOPERATIVE DIAGNOSIS: 1. 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 2. 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 3. Intractable low back pain. 4. Intractable left lower extremity radiculopathy. 5. Severe left L5-S1 neural foraminal encroachment. 6. Failed conservative care. 7. High risk surgical candidate given age of 70 years, comorbidities including morbid obesity and required surgical intervention. PROCEDURE PERFORMED: 1. Anterior lumbar retroperitoneal approach for L5-S1 complete anterior lumbar diskectomy and arthrodesis with a 15 mm high with 15 degrees of lordosis structural PEEK interbody spacers, local autograft and bone morphogenic protein. 2. Placement of the anterior lumbar plate fixation with 5.5 x 25 mm screws and locking mechanism. K2M [place] cage and screw and plating system. FINDINGS: ESTIMATED BLOOD LOSS: 50 cc. INDICATIONS: The patient is a 70-year-old woman who underwent a prior L2-S1 decompression and stabilization with pedicle screw fixation and interbody fusion with the exception of L5-S1 where there was no interbody fusion. Patient suffered a pseudoarthrosis with hardware failure and bilateral broken screws. She has intractable low back pain and also has severe adjacent level degeneration at the L1-2 level with central canal and neural foraminal lateral recess impingement. She presents now for anterior lumbar interbody fusion and plating with posterior lumbar removal and replacement of hardware and extension of the fusion and revision of the broken instrumentation. DESCRIPTION OF PROCEDURE: After informed consent was obtained, the patient was taken to the operating room and placed in supine position on the Miguelito table. The anterior abdominal region was prepped and draped in a sterile fashion after localization of the proper angle of the disk space in order to locate the ideal location for the incision. Dr. Kaushik Sebastian, general surgeon, helped with the anterior retroperitoneal approach. Following this, a complete L5-S1 diskectomy was performed with the 15 blade scalpel, the straight and angled curettes, the Kerrison rongeurs, as well as the Castellon. Following a complete diskectomy, endplates were carefully prepared and an appropriately sized [place] polyethylene ether ketone cage system, 15 mm height with 15 degrees of lordosis, was placed in the interbody space under fluoroscopic image guidance. This was packed with some local autograft from the drilling and bone morphogenic protein for an L5-S1 anterior lumbar interbody fusion. The screw and plating system was then placed with three 5.5 x 25 mm screws under fluoroscopic image guidance. Following re-verification of good position of the instrumentation and interbody cage, the wound was copiously irrigated with antibiotic irrigation, and Dr. Kaushik Sebastian closed the wound in a layered fashion per his operative note. COMPLICATIONS: None. DISPOSITION: The patient was stable throughout the case with regard to intraoperative neuro monitoring as well as the blood pressure and other anesthesia parameters. She was then repositioned prone on the Miguelito table for the 2nd stage of the operation. /[id number]/MODL ` MTDD
--- NOTE | 2016-05-10 18:51 | GOP ---
DATE OF OPERATION: 05/10/2016 SURGEON: Jeff Ashton MD MANAGER STUDY: JAYCEE Alanis. ANESTHESIA: General endotracheal. PREOPERATIVE DIAGNOSIS: 1. 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 2. 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 3. Intractable low back pain. 4. Intractable left lower extremity radiculopathy. 5. Severe left L5-S1 neural foraminal encroachment. 6. Failed conservative care. 7. High risk surgical candidate given age of 70 years, comorbidities including morbid obesity and r equired surgical intervention. POSTOPERATIVE DIAGNOSIS: 1. 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 2. 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 3. Intractable low back pain. 4. Intractable left lower extremity radiculopathy. 5. Severe left L5-S1 neural foraminal encroachment. 6. Failed conservative care. 7. High risk surgical candidate given age of 70 years, comorbidities including morbid obesity and r equired surgical intervention. PROCEDURE PERFORMED: 1. Removal of posterior segmental (pedicle screw) fixation from L2-S1 with replacement of posterior segmental instrumentation (pedicle screw and Axle device) from L1-S1. 2. Left-sided L1-2 far lateral transpedicular decompression with left-sided L5-S1 redo posterior he milaminectomy, medial facetectomy, foraminotomy, and facetectomy. 3. L1-2 posterior/transforaminal lumbar interbody fusion with 2 structural PEEK interbody spacers, local autograft, and bone morphogenic protein for an L1-2 posterior/transforaminal lumbar interbody fusion. 4. L1-S1 posterolateral fusion with local autograft and bone morphogenic protein. 5. Injection of intrathecal narcotic analgesics and subcutaneous and intramuscular local anesthesia for postoperative pain control. 6. Use of computer volumetric stereotactic navigation. FINDINGS: ESTIMATED BLOOD LOSS: 700 cc. INDICATIONS: The patient is a 70-year-old woman who underwent a prior L2-S1 decompression and stabi lization with pedicle screw fixation and interbody fusion with the exception of L5-S1 where there wa s no interbody fusion. Patient suffered a pseudoarthrosis with hardware failure and bilateral broken screws. She has intractable low back pain and also has severe adjacent level degeneration at the L 1-2 level with central canal and neural foraminal lateral recess impingement. She presents now for anterior lumbar interbody fusion and plating with posterior lumbar removal and replacement of hardwa re and extension of the fusion and revision of the broken instrumentation. DESCRIPTION OF PROCEDURE: After the anterior stage of the operation was complete, the patient was r epositioned prone on the Miguelito table. The lumbosacral area was prepped and draped in a sterile fa shion. After fluoroscopic localization of the correct level, the subcutaneous and intramuscular tis sues were infiltrated with local anesthesia. A midline linear incision was then created from approx imately L1-S1. This was carried down the fascial layer, which was then incised using the monopolar electrocautery and carried in the subfascial plane along the spinous processes and lamina bilaterall y. There was an extensive amount of scar tissue from L2-S1 that was meticulously dissected out unde r magnified vision including the microscope. A left-sided L1-2 far lateral transpedicular decompres denise was performed with complete unroofing of the facet joint and neural foramen at L1 and L2 as wel l as decompression of the thecal sac. A left-sided L5-S1 redo posterior hemilaminectomy, complete f acetectomy, and foraminotomy were performed under high-power microscopy. There was an extensive naseem unt of bone mass but a clear nonunion with movement of the L5-S1 level on significant manipulation. All of this was extensively removed and decompressed and was very difficult due to the significant a mount of scar tissue, but eventually, I completely unroof the entire L5 and S1 neural foramen. Foll owing this, the [employer] neuronavigational system was brought in and using computer volumetric stereo tactic navigation, pedicle screws were placed from L1-S1. Note that the S1 screws were particularly difficult to put screws in given the broken hardware that was lodged into the pedicles. This was v ann time consuming due to the minimal space available to place the screws. I felt that it was very important to get screws in this level because she already had a nonunion previously and given this f act and her morbid obesity, made it high risk for a 2nd nonunion. I was able to thread screws down into the pedicle as best I could bilaterally. Following this, biplanar fluoroscopy was utilized to verify good position of the screws. Intraoperative neurophysiologic testing was utilized to verify good positioning as well. The left L2 screw stimulated low and extension of the laminotomy was perf ormed, and the medial aspect of the pedicle had been breached. This was removed, a new screw replac ed, and good position verified using biplanar fluoroscopy. This screw stimulated at 19. Small rods were then placed across the L1-2 interspace with a slight amount of distraction during which time, a complete diskectomy was performed with preparation of endplates and placement of two 7 mm structur al PEEK interbody spacers, local autograft, and bone morphogenic protein for an L1-2 posterior/trans foraminal lumbar interbody fusion. Longer rods were then placed from L1-S1 with a maximum amount of lordosis in order to hopefully prevent flat back syndrome as best we could. A slight amount of com pression was placed across the L5-S1 interspace and L1-2 in order to facilitate bony union and to mi nimize potential for posterior graft migration or anterior graft migration at the L5-S1 level. Foll owing this and re-verification of good position of all the screws, rods, and interbody spacers using biplanar fluoroscopy, the wound was copiously irrigated with antibiotic irrigation. Meticulous hem ostasis was again achieved. Then 200 mcg of Duramorph along with 50 mcg of fentanyl were injected i ntrathecally. An Axle device was placed at the L1-2 level in order to hopefully prevent hardware fa ilure and a pseudoarthrosis at the upper end of the construct given her history of nonunion and her morbid obesity, which I felt was a very high risk. The remaining lamina, facet joints, and bone mas s were then extensively decorticated at L1, L2, L3, L4, L5, and S1, and the local autograft from the exposure and facetectomies along with bone morphogenic protein was placed out laterally for an L1-S 1 posterolateral fusion. A drain was then placed and the wound was closed in a layered fashion usin g interrupted Vicryl sutures followed by Steri-Strips on the skin. COMPLICATIONS: None. DISPOSITION: The patient is currently in the process of being repositioned for extubation. /[id number]/MODL
[2016-05-10] MEDS: morphINE PCA 30 MG/30 ML PCA IV PRN (19:30)
[2016-05-10] MEDS ORDERED: NS 1,000 ML IV ONE ×2 (19:30→22:29)
[2016-05-10 20:17] LABS: HEMATOCRIT 26.8 % (38.0-47.0); HEMOGLOBIN 8.8 g/dL (12.6-16.3)
[2016-05-10] MEDS ORDERED: NS BOLUS 1000 ML (Wide open) IV ONE (20:30)
[2016-05-10] MEDS: FAMOTIDINE 20 MG/NACL 50 ML IV SCH (20:47)
[2016-05-10] MEDS: SENNOSIDES/DOCUSATE SODIUM TAB PO SCH (20:52)
[2016-05-10] MEDS: morphINE SR 15 MG TAB PO SCH (20:53)
[2016-05-10] MEDS: POLYETHYLENE GLYCOL 3350 17 GM PKT PO SCH (21:05)
[2016-05-10] MEDS: NS 1,000 ML IV SCH (22:42)
[2016-05-11] MEDS: DIAZEPAM 5 MG TAB PO PRN ×4 (01:38→17:31)
[2016-05-11 04:29] LABS: % IMMATURE GRANULYOCYTES 0.5 % (0.0-1.1); ABSOLUTE IMMATURE GRANULOCYTES 0.05 10^3/uL (0.00-0.10); ADD DIFF? NO; ADD MORPH? YES; ADD SCAN? NO; ATYPICAL LYMPHOCYTE FLAG 10 (0-99); FRAGMENT RBC FLAG 0 (0-99); HEMATOCRIT 21.1 % (38.0-47.0); LEFT SHIFT FLG 0 (0-99); LIPEMIA HEMOLYSIS FLAG 80 (0-99); MEAN CELL HEMOGLOBIN 31.5 pg (27.9-34.1); MEAN CELL HEMOGLOBIN CONCENTR. 32.7 g/dL (32.4-36.7); MEAN CELL VOLUME 96.3 fL (81.5-99.8); MEAN PLATELET VOLUME 9.3 fL (8.7-11.7); PLATELET CLUMPS FLAG 10 (0-99); PLATELET COUNT 227 10^3/uL (150-400); RED BLOOD CELL COUNT 2.19 10^6/uL (4.18-5.33); RED CELL DISTRIBUTION WIDTH 13.7 % (11.5-15.2)
[2016-05-11 04:34] LABS: HEMOGLOBIN 6.9 g/dL (12.6-16.3)
[2016-05-11 04:55] LABS: MACROCYTES 1+; PLATELET ESTIMATE ADEQUATE (ADEQ)
[2016-05-11 05:15] LABS: ANION GAP 4 mEq/L (8-16); CALCIUM 7.6 mg/dL (8.5-10.4); CARBON DIOXIDE 22 mEq/l (22-31); CHLORIDE 109 mEq/L (97-110); CREATININE 0.7 mg/dL (0.6-1.0); GLOMERULAR FILTRATION RATE > 60; GLUCOSE 115 mg/dL (70-100); POTASSIUM 4.7 mEq/L (3.5-5.2); SODIUM 135 mEq/L (134-144)
--- NOTE | 2016-05-11 06:52 | NEUSURGPN ---
Date of Surgery: 05/10/16 Post Op Day: 1 Assessment/Plan: 70F s/t L5/S1 ALIF and L1-S1 PSF w/ L1/2TLIF for L5/S1 pseudoarthrosis -hgb 6.9 this am, pressures continue to be low after adequate fluid replacement and urine output 500mL overnight, will transfuse 2 units at this point -R shoulder weakness, consistent since post op. will follow -Left leg HF weakness with antigravity, pt has good tone. will follow -JPx1, 480ml overnight -will look to transfer to floor after pressures normalize. -continue CCollar -advance diet as able -wean fluids when PO adequate -Pain Control -PT/OT -post op films on Friday -DVT ppx Subjective: pt complaining of inability to move R shoulder and raise her left leg off the bed. she has localized pain in her left lateral hip when she tries to move her leg Objective: NAD, Vitals reviewed, pressures softLast BP 96/38 no facial droop MAEx4, L HF good tone and resistance but not antigravity. does not move R shoulder against gravity but tone present jpx1 w/ s/s drainage 480mL overnight +LT anterior incision c/d/i posterior incision covered, c/d/i Urinary Catheter in Place: Yes Urinary Catheter Indication: Accurate I & O Required Catheter Insertion Date: 05/10/16 - Physician Discussed Patient with : Daisha Neurosurgery Physical Exam - Vitals, I&O, Labs I and O 05/10/16 05/11/16 05/12/16 05:59 05:59 05:59 Intake Total 9104 Output Total 2430 Balance 6674 Intake: Oral (ml) 370 IV Intake (ml) 5734 IV Infused (ml) 3000 Ns 1,000 ml @ 3000 mls/hr 1000 IV ONCE ONE Rx#: [id number] Ns 1,000 ml @ As Directed 1000 IV ONCE ONE Rx#: [id number] Ns 1,000 ml @ Wide Open 1000 IV ONCE ONE Rx#: [id number] Output: Urine (ml) 1200 Catheter 1200 Estimated Blood Loss (ml) 750 Wound Drainage (ml) 480 #1 Left Abdomen Miguelito 480 Salazar Vital Signs Temp Pulse Resp BP Pulse Ox 36.9 C 83 14 96/38 L 96 05/10/16 20:57 05/11/16 06:00 02/25/17 06:00 05/11/16 06:00 05/11/16 06:00 Laboratory Results 05/11/16 04:20 05/11/16 04:20 ICD10 Worksheet Patient Problems: Problems Problem Status Onset Fusion of spine of cervical region Acute
[2016-05-11] MEDS: NS 1,000 ML IV SCH (08:02)
[2016-05-11] MEDS: FAMOTIDINE 20 MG/NACL 50 ML IV SCH ×2 (08:13→20:18)
[2016-05-11] MEDS: ENOXAPARIN 40 MG/0.4 ML SYR SC SCH ×2 (08:23→08:32)
[2016-05-11] MEDS: morphINE SR 15 MG TAB PO SCH ×2 (08:23→20:18)
[2016-05-11] MEDS: POLYETHYLENE GLYCOL 3350 17 GM PKT PO SCH ×3 (08:23→20:19)
[2016-05-11] MEDS: SENNOSIDES/DOCUSATE SODIUM TAB PO SCH ×2 (08:24→20:18)
[2016-05-11] MEDS: diphenhydrAMINE 25 MG CAP PO PRN ×2 (08:25→15:10)
[2016-05-11 09:59] LABS: HEMOGLOBIN 9.6 g/dL (12.6-16.3)
--- NOTE | 2016-05-11 10:33 | SOAPPROG ---
SOAP Progress Note Assessment/Plan: Assessment:good night overall. rec'd 2U PRBC for anemia/hypot - approp response (9.6). c/o right shoulder and left hip pain. no abd concerns. afebrile. bp120. comfortable. abd soft, incis clean. s/p anter spinal exposure - no abd concerns. right shoulder pain/weakness likely secondary to surgical positioning traction. left hip pain/weakness - per NS. ok to adv diet as tolerated. cont PT. to floor later today/am Plan: 05/11/16 10:30 Objective: Vital Signs Temp Pulse Resp BP Pulse Ox 36.9 C 83 14 119/49 L 95 05/10/16 20:57 05/11/16 06:00 05/11/16 06:00 05/11/16 09:20 05/11/16 09:20 Laboratory Results 05/11/16 09:52 05/11/16 04:20 05/10/16 05/11/16 05/12/16 05:59 05:59 05:59 Intake Total 8211 Output Total 6390 Balance 6674 ICD10 Worksheet Patient Problems: Problems Problem Status Onset Fusion of spine of cervical region Acute
[2016-05-11] MEDS: HYDROmorphONE/DILAUDID 1 MG/ML SYR IVP PRN (22:59)
[2016-05-12] MEDS: HYDROmorphONE/DILAUDID 1 MG/ML SYR IVP PRN ×2 (01:16→04:35)
[2016-05-12 04:57] LABS: HEMATOCRIT 24.2 % (38.0-47.0); HEMOGLOBIN 7.8 g/dL (12.6-16.3); MEAN CELL HEMOGLOBIN 30.6 pg (27.9-34.1); MEAN CELL HEMOGLOBIN CONCENTR. 32.2 g/dL (32.4-36.7); MEAN CELL VOLUME 94.9 fL (81.5-99.8); RED BLOOD CELL COUNT 2.55 10^6/uL (4.18-5.33); RED CELL DISTRIBUTION WIDTH 15.9 % (11.5-15.2)
[2016-05-12 05:10] LABS: ANION GAP 6 mEq/L (8-16); CALCIUM 7.4 mg/dL (8.5-10.4); CARBON DIOXIDE 23 mEq/l (22-31); CHLORIDE 112 mEq/L (97-110); CREATININE 0.7 mg/dL (0.6-1.0); GLOMERULAR FILTRATION RATE > 60; GLUCOSE 87 mg/dL (70-100); SODIUM 141 mEq/L (134-144)
[2016-05-12] MEDS: morphINE PCA 30 MG/30 ML PCA IV PRN (07:22)
[2016-05-12] MEDS: diphenhydrAMINE 25 MG CAP PO PRN ×3 (07:33→16:46)
[2016-05-12] MEDS: DIAZEPAM 5 MG TAB PO PRN ×3 (07:33→20:34)
[2016-05-12] MEDS: SENNOSIDES/DOCUSATE SODIUM TAB PO SCH ×2 (07:33→20:34)
[2016-05-12] MEDS: morphINE SR 15 MG TAB PO SCH (07:33)
[2016-05-12] MEDS: ENOXAPARIN 40 MG/0.4 ML SYR SC SCH (07:34)
[2016-05-12] MEDS: POLYETHYLENE GLYCOL 3350 17 GM PKT PO SCH ×3 (07:34→20:34)
[2016-05-12] MEDS: FAMOTIDINE 20 MG/NACL 50 ML IV SCH ×2 (07:34→20:35)
--- NOTE | 2016-05-12 07:40 | NEUSURGPN ---
Assessment/Plan: 70F s/t L5/S1 ALIF and L1-S1 PSF w/ L1/2TLIF for L5/S1 pseudoarthrosis -hgb 7.8 this am, pressures improved, will repeat h&h this afternoon -R shoulder weakness, consistent since post op. will follow -Left leg HF weakness with antigravity, pt has good tone. will follow -JPx1, 220ml overnight -will look to transfer to floor after pressures normalize. -continue CCollar, brace when OOB -Pain Control -PT/OT -post op films on Friday -DVT ppx POD#1 -transfer to floor when able Subjective: having some increased pain issues today, we encouraged adequate control movement. Still with weakness in her R shoulder Objective: NAD, Vitals reviewed, pressures improving no facial droop MAEx4, L HF 4/5 does not move R shoulder against gravity but tone present jpx1 w/ s/s drainage, clearing. 220mL overnight +LT anterior incision c/d/i posterior incision covered, c/d/i Urinary Catheter in Place: Yes Urinary Catheter Indication: Accurate I & O Required Catheter Insertion Date: 05/10/16 - Physician Discussed Patient with : Daisha Neurosurgery Physical Exam - Vitals, I&O, Labs I and O 05/11/16 05/12/16 05/13/16 05:59 05:59 05:59 Intake Total 9104 2825 Output Total 2430 2585 Balance 6674 240 Intake: Oral (ml) 370 500 IV Intake (ml) 5734 IV Infused (ml) 3000 2325 Ns 1,000 ml @ 100 mls/hr 2325 IV CONT NENA Rx#: [id number] Ns 1,000 ml @ 3000 mls/hr 1000 IV ONCE ONE Rx#: [id number] Ns 1,000 ml @ As Directed 1000 IV ONCE ONE Rx#: [id number] Ns 1,000 ml @ Wide Open 1000 IV ONCE ONE Rx#: [id number] Output: Urine (ml) 1200 2150 Catheter 1200 2150 Estimated Blood Loss (ml) 750 Wound Drainage (ml) 480 435 #1 Left Abdomen Miguelito 480 435 Salazar Vital Signs Temp Pulse Resp BP Pulse Ox 36.8 C 88 14 106/50 L 92 05/11/16 20:00 05/12/16 06:00 05/12/16 06:00 05/12/16 06:00 05/12/16 06:00 Laboratory Results 05/12/16 04:45 05/12/16 04:45 ICD10 Worksheet Patient Problems: Problems Problem Status Onset Fusion of spine of cervical region Acute
--- NOTE | 2016-05-12 08:37 | SOAPPROG ---
SOAP Progress Note Assessment/Plan: Assessment/Plan: Assessment:good night. c/o right shoulder and left hip weakness. no abd concerns. afebrile. bp126/88. comfortable. abd soft, incis clean. s/p anterior spinal exposure - no abd concerns. right shoulder pain/weakness likely secondary to surgical positioning traction. left hip pain/weakness - per NS. ok to adv diet as tolerated. cont PT. Hgb 7.8 this am stable chappell out per ns later today to floor later today/am if no issues 05/12/16 08:36 Objective: Vital Signs Temp Pulse Resp BP Pulse Ox 36.8 C 98 18 126/48 H 95 05/12/16 08:00 05/12/16 08:00 05/12/16 08:00 05/12/16 08:00 05/12/16 08:00 Laboratory Results 05/12/16 04:45 05/12/16 04:45 05/11/16 05/12/16 05/13/16 05:59 05:59 05:59 Intake Total 8157 3715 Output Total 7887 0262 Balance 6632 240 ICD10 Worksheet Patient Problems: Problems Problem Status Onset Fusion of spine of cervical region Acute
[2016-05-12] MEDS ORDERED: HYDROmorphONE/DILAUDID 6 MG/30 ML PCA IV PRN (10:36)
--- NOTE | 2016-05-12 12:35 | PDINTPN ---
[facility] Progress Note Assessment/Plan: Assessment/plan: 70 F with chronic RUE weakness following rotator cuff injury 2011, s/p C3-6 diskectomy and fusion 04/18/16, followed by elective L1-S1 anterior and posterior redo, hardware removal and instrumentation on 05/10/16. Postoperatively she complained of left thigh numberness and severe proximal weakness of RUE. * S/p spine surgery- her numbness has remained stable but appears consistent with L2-3 distribution. She has motor function and lifted her legs while standing at the bedside. Continue with support, PT/OT * RUE weakness- Chronicity unclear to me * HTN- BP stable without medications. This was a new diagnosis at last admission * DVT hx (2012)- currently on lovenox * Anemia postop- transfused 2 units RBC 05/11 with expected rise in H/H. Slight drop today without active bleeding noted. Recheck AM * Hypotension- resolved with IVF/RBC * Itching- likely related to Morphine. Changing to Dilaudid- if persists would try fentanyl as IMCU SPECIALIST or patch * Subjective: Feels about the same- c/o inability to lift RUE (can flex forearm) and weakness/ numbness in LLE. Up to bedside 05/11 with pain; up to chair today and eating breakfast. C/o whole body itching Objective: Vital Signs Temp Pulse Resp BP Pulse Ox 37.0 C 76 16 112/66 96 05/12/16 11:57 05/12/16 11:57 05/12/16 11:57 05/12/16 11:57 05/12/16 11:57 Laboratory Results 05/12/16 04:45 05/12/16 04:45 05/11/16 05/12/16 05/13/16 05:59 05:59 05:59 Intake Total 9104 2825 480 Output Total 2430 2585 830 Balance 6674 240 -350 Physical Exam - Physical Exam General Appearance: WD/WN, alert, obese EENT: PERRL/EOMI Neck: normal inspection, other (C collar) Respiratory: lungs clear, normal breath sounds, No respiratory distress Cardiac/Chest: normal peripheral pulses, regular rate, rhythm, No edema Abdomen: normal bowel sounds, non-tender, soft, No distended Skin: normal color, warm/dry, No rash Lymphatic: no adenopathy Extremities: No pedal edema Neuro/Psych: alert, normal mood/affect, oriented x 3, motor weakness (unable to hold up right arm, but strong water operator[ and flex at elbow), sensory deficit (L2-3 left LLE) ICD10 Worksheet Patient Problems: Problems Problem Status Onset Fusion of spine of cervical region Acute
[2016-05-12 16:44] LABS: HEMOGLOBIN 9.1 g/dL (12.6-16.3)
[2016-05-12] MEDS ORDERED: ACETAMINOPHEN 650 MG/20.3 ML UDCUP PO PRN (16:54)
[2016-05-12] MEDS: morphINE SR 30 MG TAB PO SCH (20:34)
[2016-05-13] MEDS: DIAZEPAM 5 MG TAB PO PRN ×3 (03:37→17:51)
[2016-05-13] MEDS: morphINE SR 30 MG TAB PO SCH ×2 (09:48→20:44)
[2016-05-13] MEDS: SENNOSIDES/DOCUSATE SODIUM TAB PO SCH ×2 (10:11→22:02)
[2016-05-13] MEDS: FAMOTIDINE 20 MG TAB PO SCH ×2 (10:11→20:43)
[2016-05-13] MEDS: ENOXAPARIN 40 MG/0.4 ML SYR SC SCH (10:12)
[2016-05-13] MEDS: POLYETHYLENE GLYCOL 3350 17 GM PKT PO SCH ×3 (10:12→22:05)
--- NOTE | 2016-05-13 10:31 | NEUSURGPN ---
Assessment/Plan: 70F s/t L5/S1 ALIF and L1-S1 PSF w/ L1/2TLIF for L5/S1 pseudoarthrosis -H/H 9.127.0 this am- will continue to monitor -R shoulder weakness, consistent since post op. will follow and consult ortho today -Left leg HF weakness -JPx1, 250ml in last 24 hrs. bulb came off and put back on overnight -continue CCollar, brace when OOB -Pain Control- wean off IMMUNOPATHOLOGIST -PT/OT -post op xrays today -DVT- TEDS, SCDs, Lovenox -Discussed with Subjective: Up in chair. Wants to walk around more today. Left leg with continued numbness and pain in left hip. Still concerned with right shoulder weakness. No weakness elsewhere in arm and no pain in right arm. Objective: NAD, VSS MAEx4, L HF 4/5 does not move R shoulder against gravity but tone present- BUE 5/5= in all other muscle groups except delt 0/5 jpx1 w/ s/s drainage, clearing. 250mL last 24hrs +LT anterior incision c/d/i posterior incision covered, c/d/i Catheter Insertion Date: 05/11/16 - Physician Discussed Patient with : Daisha Neurosurgery Physical Exam - Vitals, I&O, Labs I and O 05/12/16 05/13/16 05/14/16 05:59 05:59 05:59 Intake Total 2825 1962.4 Output Total 2585 4260 60 Balance 240 -2297.6 -60 Intake: Oral (ml) 500 1730 IV Infused (ml) 2325 232.4 HYDROmorphone HCL 6 mg ( 1.4 See Protocol) IV PRN PRN Rx#:[id number] Ns 1,000 ml @ 100 mls/hr 2325 231 IV CONT NENA Rx#: [id number] Output: Urine (ml) 2150 3950 Catheter 2150 3950 Wound Drainage (ml) 435 310 60 #1 Left Abdomen Miguelito 435 310 60 Salazar Other: Intake Quantity Yes Sufficient Vital Signs Temp Pulse Resp BP Pulse Ox 36.9 C 96 16 126/67 H 98 05/13/16 07:49 05/13/16 09:54 05/13/16 09:54 05/13/16 09:54 05/13/16 09:54 Laboratory Results 05/12/16 16:24 05/12/16 04:45 ICD10 Worksheet Patient Problems: Problems Problem Status Onset Fusion of spine of cervical region Acute
[2016-05-13] MEDS: oxyCODONE IR 5 MG TAB PO PRN ×3 (10:59→20:44)
[2016-05-13] MEDS: diphenhydrAMINE 25 MG CAP PO PRN ×2 (12:45→20:43)
--- NOTE | 2016-05-13 14:50 | GCON ---
ORTHOPEDIC CONSULT. CHIEF COMPLAINT: 1. Inability to move right shoulder. 2. Right arm pain. 3. Status post lumbar surgery. 4. Status post recent cervical spine surgery. HISTORY OF PRESENT ILLNESS: The patient is a 70-year-old female who recently underwent a lumbar fus ion multilevel. Reportedly by her an 8-hour surgery. Two or 3 weeks ago underwent a cervic al procedure. She did not describe any weakness after the cervical procedure. She does have a nota ble history of what sounds like an attempted rotator cuff repair in the [facility] and then a re vision for a massive cuff tear by Dr. Dianne Dominguez a few years ago. She describes having normal sensat ion over both shoulders, but she had the inability to move the shoulder in the cuff musculature. Sh e states that she was able to abduct her arm to about 80 degrees and that her other arm had to help her arm brush her hair, brush her teeth, and eat, and this was at her baseline. Something new happe kevyn after the lumbar surgery. A long procedure. Supine and prone. Afterwards, she had pain in the right shoulder, but today she is having very little pain with the inability to actively move her ar m; it feels paralyzed. Please see the neurosurgery interval notes. PERTINENT ORTHOPEDIC EXAMINATION: Reveals a pleasant female in no apparent distress. She has passi ve range of motion of her shoulder to 120 degrees of forward flexion. She has no pain. The skin lo oks healthy. She has decreased to no sensation over the posterior and lateral shoulder. She has no deltoid activation on the right side. She has intact elbow flexion and extension. Intact wrist ex tension and flexion. Intact EPL. Intact finger java portal developer and extension. The left shoulder has active abduction 90 degrees with good strength. Good sensation in the C4 to T 1 distribution on the left side. Three views of the right shoulder reveal osteoarthritic change. Three metal anchors in the greater tuberosity. No evidence of fracture. Evidence of what looks likely a distal clavicle excision. ASSESSMENT: My concern is axillary nerve injury, likely a neurapraxia. Her did not describ e a lateral position. I spoke with the neurosurgical PA also. It was a prone and supine position. We will discuss with the neurosurgery team regarding the positioning, but it could have been that t here was some traction injury to that area. I am hoping that this is a transient neurapraxia. She does have a notable history for cuff pathology, but she should be able to abduct her arm at least to 45 degrees which she had at baseline, and her shoulder is not at baseline currently. We did offer her further advanced imaging, but I think careful monitoring and careful physical exam and serial mo nitoring would be womack. We briefly discussed the role of EMG nerve conduction velocities. We will follow up on a clinical basis. /[id number]/MODL
[2016-05-14] MEDS: diphenhydrAMINE 25 MG CAP PO PRN (03:20)
[2016-05-14] MEDS: DIAZEPAM 5 MG TAB PO PRN ×2 (03:20→11:11)
[2016-05-14] MEDS: oxyCODONE IR 5 MG TAB PO PRN ×5 (03:21→16:00)
[2016-05-14] MEDS: morphINE SR 30 MG TAB PO SCH (08:11)
[2016-05-14] MEDS: FAMOTIDINE 20 MG TAB PO SCH (08:12)
[2016-05-14] MEDS: SENNOSIDES/DOCUSATE SODIUM TAB PO SCH (08:14)
[2016-05-14] MEDS: POLYETHYLENE GLYCOL 3350 17 GM PKT PO SCH (08:15)
[2016-05-14] MEDS: ENOXAPARIN 40 MG/0.4 ML SYR SC SCH (08:16)
--- NOTE | 2016-05-14 11:05 | SOAPPROG ---
SOAP Progress Note Assessment/Plan: Assessment: 70 yo female s/p L5/S1 ALIF and L1-S1 fusion. POD #4 left leg still numb and weaker right arm weakness possibly related to axial nerve injury per Ortho Plan: PT/OT as tolerated DC planning DC planning continue JHONATHAN drain, will likely pull prior to DC 05/14/16 11:06 Subjective: in bed, back pain well controlled main complaint is RUE weakness and ongoing left thigh paresthesias Objective: Vital Signs Temp Pulse Resp BP Pulse Ox 37.3 C 87 16 111/52 L 95 05/14/16 03:25 05/14/16 03:25 05/14/16 03:25 05/14/16 03:25 05/14/16 03:25 Laboratory Results 05/12/16 16:24 05/12/16 04:45 05/13/16 05/14/16 05/15/16 05:59 05:59 05:59 Intake Total 1962.4 1250 Output Total 4260 190 Balance -2297.6 1060 Neuro: RUE 0/5 Deltoid, 4+/5 biceps and triceps, bilateral LE 5/5, sens decreased in left thigh. JHONATHAN: scant in bulb this AM ICD10 Worksheet Patient Problems: Problems Problem Status Onset Fusion of spine of cervical region Acute
[2016-05-14 11:16] VITALS: BP 128/63; PULSE 104; RESP 14; TEMP 98.9; O2SAT 89
--- NOTE | 2016-05-14 11:37 | PDIAF ---
- Diagnosis Diagnosis: lumbar DJD, stenosis. Right axillary neuropraxia Code Status: Full Code - Medication Management Discharge Medications: Medications to Continue on Transfer Docusate Sodium [Colace 100 MG (*)] 300 mg PO HS 04/18/16 [Last Taken 05/09/16 20:00] Polyethylene Glycol 3350 [Miralax 17 gm (*)] 17 gm PO DAILY 05/02/16 [Last Taken 05/09/16 08:00] Diazepam [Valium 5 MG (*)] 2.5 - 5 mg PO QID PRN #90 tab 05/14/16 [Last Taken Unknown] Enoxaparin [Lovenox 40 MG (*)] 40 mg SC DAILY #0 syr 05/14/16 [Last Taken Unknown] Sennosides/Docusate Sodium [Senokot-S] 1 - 2 tab PO BID #0 tab 05/14/16 [Last Taken Unknown] morphINE SR [MS Contin/Oramorph SR 30 mg (*)] 30 mg PO BID #60 tab 05/14/16 [ Last Taken Unknown] oxyCODONE IR [Oxycodone Ir (*)] 5 - 15 mg PO Q4HRS PRN #90 tab 05/14/16 [Last Taken Unknown] Discharge Medications: Refer to the Discharge Home Medication list for PRN reason. - Orders Services needed: Registered Nurse, Physical Therapy, Occupational Therapy Diet Recommendation: no restrictions on diet Diet Texture: Regular Texture Diet Goodwin: No Zoltan Stockings Discontinue Date: 05/19/16 Wound Care Instructions: keep steri strips in place Activity/Weight Bearing Restrictions: as tolerated - Follow Up Care Current Providers and Referrals: MAXINE HAAS [Primary Care Provider] -
== END 2016-05-14 16:08 | DRG 454 ==
LOC: F2N 05:18 → F3N 05-12 13:56
PROVIDERS: ADMIT Neurological Surgery; ATTEND Neurological Surgery
PROC: 0ST20ZZ Resection of Lumbar Vertebral Disc, Open Approach (ICD-10-PCS; principal; 2016-05-10 07:15)
PROC: 0QP004Z Removal of Internal Fixation Device from Lumbar Vertebra, Open Approach (ICD-10-PCS; principal; 2016-05-10 07:15)
PROC: 0SG30A0 Fusion of Lumbosacral Joint with Interbody Fusion Device, Anterior Approach, Anterior Column, Open Approach (ICD-10-PCS; principal; 2016-05-10 07:15)
PROC: 0SG00AJ Fusion of Lumbar Vertebral Joint with Interbody Fusion Device, Posterior Approach, Anterior Column, Open Approach (ICD-10-PCS; principal; 2016-05-10 07:15)
PROC: 01NB0ZZ Release Lumbar Nerve, Open Approach (ICD-10-PCS; principal; 2016-05-10 07:15)
PROC: 3E0U0GB Introduction of Recombinant Bone Morphogenetic Protein into Joints, Open Approach (ICD-10-PCS; principal; 2016-05-10 07:15)
DX: M96.0 Pseudarthrosis after fusion or arthrodesis (principal); T84.216A Breakdown (mechanical) of internal fixation device of vertebrae, initial encounter; M51.36 Other intervertebral disc degeneration, lumbar region; M25.552 Pain in left hip; G58.9 Mononeuropathy, unspecified; D62 Acute posthemorrhagic anemia; L29.9 Pruritus, unspecified; T40.2X5A Adverse effect of other opioids, initial encounter; M19.012 Primary osteoarthritis, left shoulder; I95.9 Hypotension, unspecified; Z98.1 Arthrodesis status; I10 Essential (primary) hypertension; E66.01 Morbid (severe) obesity due to excess calories; Z68.34 Body mass index [BMI] 34.0-34.9, adult
CPT/HCPCS: 97116-GP; 97162-GP; 97166-GO; 97530-GO; 97530-GP; 97535-GO; C1713; G8978-GP-CL; G8979-GP-CJ; G8987-GO-CM; G8988-GO-CJ; J0690; J1100; J1170; J1200; J1650; J2001; J2250; J2270; J2274; J2405; J2704; J3010; J7060; P9016

== ENCOUNTER → 2016-07-06 | Outpatient (CLI) | payer OTHER, MEDICARE | LOC: FIMAGING 07:45 | PROVIDERS: ATTEND Orthopaedic Surgery | DX: Z98.1 Arthrodesis status (principal); M48.02 Spinal stenosis, cervical region ==

== ENCOUNTER → 2016-07-18 | Outpatient (CLI) | payer OTHER, MEDICARE | LOC: FIMAGING 11:17 | PROVIDERS: ATTEND Physician Assistant Surgical | DX: Z09 Encounter for follow-up examination after completed treatment for conditions other than malignant neoplasm (principal); Z98.1 Arthrodesis status ==

== ENCOUNTER 2016-08-13 05:30 | Inpatient (IN) | payer OTHER, MEDICARE ==
[2016-08-13] MEDS ORDERED: CALCIUM CHLORIDE 1 GM/10 ML INJ ONE (06:38)
[2016-08-13] MEDS ORDERED: THROMBIN (BOVINE) 5,000 UNIT VIAL TP ONE (06:38)
[2016-08-13] MEDS ORDERED: BUPIVACAINE 0.5% 30 ML SDV ONE (06:38)
[2016-08-13] MEDS ORDERED: BACITRACIN 50,000 UNITS/10 ML SYR IRR ONE (06:39)
[2016-08-13] MEDS ORDERED: POLYMYXIN B SULFATE 500,000 UNIT/10 ML SYR IRR ONE (06:39)
[2016-08-13 06:46] LABS: % IMMATURE GRANULYOCYTES 0.1 % (0.0-1.1); ABSOLUTE IMMATURE GRANULOCYTES 0.01 10^3/uL (0.00-0.10); ADD DIFF? NO; ADD MORPH? NO; ADD SCAN? NO; ATYPICAL LYMPHOCYTE FLAG 20 (0-99); FRAGMENT RBC FLAG 0 (0-99); HEMATOCRIT 33.5 % (38.0-47.0); HEMOGLOBIN 10.3 g/dL (12.6-16.3); LEFT SHIFT FLG 0 (0-99); LIPEMIA HEMOLYSIS FLAG 80 (0-99); MEAN CELL HEMOGLOBIN 24.4 pg (27.9-34.1); MEAN CELL HEMOGLOBIN CONCENTR. 30.7 g/dL (32.4-36.7); MEAN CELL VOLUME 79.4 fL (81.5-99.8); MEAN PLATELET VOLUME 9.2 fL (8.7-11.7); PLATELET CLUMPS FLAG 0 (0-99); PLATELET COUNT 261 10^3/uL (150-400); RED BLOOD CELL COUNT 4.22 10^6/uL (4.18-5.33); RED CELL DISTRIBUTION WIDTH 16.7 % (11.5-15.2)
[2016-08-13] MEDS ORDERED: MIDAZOLAM 2 MG/2 ML VIAL ONE (07:01)
[2016-08-13] MEDS ORDERED: ONDANSETRON 4 MG/2 ML VIAL ONE (07:05)
[2016-08-13] MEDS ORDERED: LIDOCAINE 2% 100 MG/5 ML SYR ONE (07:05)
[2016-08-13] MEDS ORDERED: SUGAMMADEX SODIUM 200 MG/2 ML VIAL IVP ONE (07:05)
[2016-08-13] MEDS ORDERED: DEXAMETHASONE 4 MG/ML VIAL ONE (07:05)
[2016-08-13] MEDS ORDERED: HYDROmorphONE/DILAUDID 2 MG/ML INJ ONE ×2 (07:05→09:58)
[2016-08-13] MEDS ORDERED: ROCURONIUM 50 MG/5 ML VIAL ONE (07:05)
[2016-08-13] MEDS ORDERED: fentaNYL 100 MCG/2 ML INJ ONE ×2 (07:05→09:40)
[2016-08-13] MEDS ORDERED: PROPOFOL 200 MG/20 ML VIAL ONE (07:05)
[2016-08-13] MEDS ORDERED: CEFAZOLIN 2 GM/DEXTROSE/100 ML BAG IV ONE (07:18)
[2016-08-13] MEDS ORDERED: ACETAMINOPHEN 325 MG TAB ONE (07:20)
[2016-08-13] MEDS ORDERED: ACETAMINOPHEN 325 MG TAB PO ONE (07:30)
[2016-08-13] MEDS ORDERED: CHLORHEXIDINE GLUC HIBICLENS 118 ML BTL TP ONE (07:30)
[2016-08-13] MEDS ORDERED: CEFAZOLIN 2 GM/DEXTR 100 ML IV ONE (07:30)
[2016-08-13] MEDS ORDERED: ROPI/epiNEPH/KETOROLAC JOINT COCKTAIL IU ONE (07:30)
--- NOTE | 2016-08-13 09:32 | POSTOPPROG ---
Post Op Note Date of Operation: 08/13/16 Surgeon: Dianne Dominguez Manager Production: steven Anesthesiologist: shanda Anesthesia: GET(General Endotracheal) Pre-op Diagnosis: r knee oa Procedure: r tkr Inf/Abcess present in the surg proc area at time of surgery?: No Depth: Deep Incisional (Fascial) EBL: 100-500
[2016-08-13] MEDS ORDERED: DIPHENOXYLATE/ATROPINE LOMOTIL 1 TAB PO PRN (09:33)
[2016-08-13] MEDS ORDERED: diphenhydrAMINE 25 MG CAP PO PRN (09:33)
[2016-08-13] MEDS ORDERED: BISACODYL 10 MG SUPP PR PRN (09:33)
[2016-08-13] MEDS ORDERED: ONDANSETRON 4 MG/2 ML VIAL IVP PRN (09:33)
[2016-08-13] MEDS ORDERED: TEMAZEPAM 15 MG CAP PO PRN (09:33)
[2016-08-13] MEDS ORDERED: METOCLOPRAMIDE 10 MG/2 ML VIAL IVP PRN (09:33)
[2016-08-13] MEDS ORDERED: LACTULOSE 20 GM/30 ML UDCUP PO PRN (09:33)
[2016-08-13] MEDS ORDERED: ONDANSETRON DISINTEGRATING 4 MG TAB PO PRN (09:33)
[2016-08-13] MEDS ORDERED: PROMETHAZINE HCL 25 MG/ML INJ IVP PRN (09:33)
[2016-08-13] MEDS ORDERED: PHARMACY PAIN CONSULT 1 EA MISC PRN (09:33)
[2016-08-13] MEDS ORDERED: PROMETHAZINE HCL 25 MG SUPPR PR PRN (09:33)
[2016-08-13] MEDS ORDERED: MAGNESIUM HYDROXIDE 30 ML UDCUP PO PRN (09:33)
[2016-08-13] MEDS ORDERED: TAPENTADOL HCL 50 MG TAB PO PRN (09:33)
[2016-08-13] MEDS ORDERED: HYDROmorphONE/DILAUDID 1 MG/ML SYR ONE (09:40)
[2016-08-13] MEDS ORDERED: LR 1,000 ML IV SCH (10:00)
--- NOTE | 2016-08-13 11:06 | GOP ---
[f rep st] OPERATIVE REPORT DATE OF OPERATION: 08/13/2016 SURGEON: Dianne Dominguez MD FLAKE OR SHRED ROLL OPERATOR: JAYCEE Hartley, whose presence was medically necessary. ANESTHESIA: Endotracheal intubation. PREOPERATIVE DIAGNOSIS: Right knee osteoarthritis. POSTOPERATIVE DIAGNOSIS: Right knee osteoarthritis. PROCEDURE PERFORMED: Right total knee arthroplasty. FINDINGS: INDICATIONS: This is a 70-year-old female with a long history of right knee pain worsening with use and with time to the point she has difficulties with activities of daily living. X-ray exam reveal s [id number] osteoarthritic changes. She wishes to have surgery in order to resolve the problem. DESCRIPTION OF PROCEDURE: The patient was brought to the operating room, after the right side had b een identified as the correct side by the patient, nurse, and physician. Once in the operating room , she was placed under general anesthesia using endotracheal intubation. Once asleep, a tourniquet placed around the upper portion of the right thigh, and the right lower extremity sterilely prepped and draped in the usual fashion using GSI solution. Once prepped and draped, the limb was exsanguin ated, tourniquet inflated to 250 mmHg. A linear incision was made on the anterior portion of the kn ee with sharp dissection carried down through the skin and subcutaneous layers, with bleeding contro lled using electrocautery. A medial parapatellar incision was made through the extensor mechanism w ith the patella brought to the side but not everted. She was noted to have grade 3 chondral changes to the patella and grade 4 chondral changes to the medial and lateral compartments. The Hoffa pad, along with the ACL and medial and lateral meniscus were removed, along with osteophytes along the f emur. The knee was bent to 90 degrees. A drill hole was made 1 cm anterior to the intercondylar no tch with an intramedullary guide placed within the femur. The end cutting guide was set to remove 8 mm of bone. Once pinned into place, was also set at 6 degrees of valgus. Once pinned i nto place and the intramedullary guide was removed, an oscillating saw was used to remove the distal end of the femur. Osteotome was used to remove cartilage from the posterior condyles of the femur, and a sizing guide was put into place. I noted a size 4 seemed to fit best, therefore, drill holes were made, and a size 4, 4-in-1 cutting block was put into place and anterior, posterior, and chamf er cuts were made. A size 4 trial was put into place. The knee was able to achieve full extension easily, therefore, the femur was centered and lug holes were drilled for the femoral component. Fem oral trial was removed, the knee brought to maximal flexion. An external tibial guide was put into place, set in neutral varus valgus, in slight posterior slope. Once pinned into place, sizing guide was set to remove 2 mm of bone from the low end of the tibia, which was the medial side. Once pinn ed into place, a drop colt was used to ensure proper positioning of the tibial cutting guide, and a l ocking pin put into place. Oscillating saw was used to remove the proximal portion of the tibia. O nce achieving a level cut, trial femur and tibia and poly liner were put into place, noted to fit se curely, and the knee was able to achieve full extension. Therefore, the trials were removed, pins w ere removed from the proximal tibia. Multiple trials were placed on the cut surface of the tibia, a nd noted a size 4 seemed to fit best. Therefore, a size 4 tibial trial was put into place, pinned i n slight external rotation with the keel punch passed through the trial into the proximal tibia. Th e trial was removed, along with the keel punch and the pins. The knee was brought to full extension . The patella was then everted. It was measured to be 24 mm in depth, therefore, oscillating saw w as used to remove the posterior portion of the patella, leaving 14 mm of bone. Multiple trials were placed on the cut surface, noting a 33 mm button seemed to fit best, therefore, lug holes were dril led for a 33 mm button, and all cut surfaces of bone were then thoroughly irrigated with antibiotic solution using pulsatile lavage while cement was being mixed. Once cement was doughy, it was placed in the proximal end of the tibia with a size 4 tibial base plate from [employer] put into place, and e xcess cement removed using [place] elevator. Cement was then placed on the posterior skids of the fem oral component with cement placed on the distal anterior portions of the cut surface of the bone wit h a size 4 cruciate-retaining right femoral component from [place] put into place, and excess cement removed using [employer] elevator. A trial liner was placed in the tibial tray. The knee was brought t o full extension under pressurized cement. Cement was then placed on the cut surface of the patella with a 33 mm patellar button clamped into place and excess cement removed using [employer] elevator. On ce cement had hardened, the clamp was removed. The trial liner was removed. Any excess cement was removed using a rongeur and osteotome. Multiple trials were placed in the tibial tray, noted a 16 m m polyethylene component gave good range of motion, along with good medial and lateral stability. T herefore, a 16 mm polyethylene liner was placed in the tibial tray. The patient then had the wound closed after joint cocktail had been injected around the periosteum of the femur and the tibia. The extensor mechanism was then closed using 0 Vicryl suture in a [id number]-[id number] type stitch with plas ma gel placed intra-articularly. 0 Vicryl and 2-0 Vicryl suture used to close subcutaneous layers w ith plasma gel placed external to the extensor mechanism, and a 3-0 V-Loc suture used to close the s kin. The tourniquet deflated at 88 minutes. The knee was then dressed with Steri-Strips, Xeroform, 4 x 4, and Kerlix. Leg was completely undraped in the operative room, tourniquet removed from the thigh, and an Deniz wrap placed around the knee. The patient was then woken up, extubated, transferre d onto a stretcher, and sent to recovery room in good condition. TOURNIQUET TIME: 88 minutes. /[id number]/MODL
[2016-08-13] MEDS ORDERED: ceFAZolin 2 GM/DEXTROSE 100 ML IV SCH (14:00)
[2016-08-13] MEDS: ACETAMINOPHEN 325 MG TAB PO SCH ×3 (14:37→23:32)
[2016-08-13] MEDS: KETOROLAC 30 MG/1 ML SDV IVP SCH ×2 (14:38→19:24)
[2016-08-13] MEDS: traMADol 50 MG TAB PO SCH ×3 (16:31→21:40)
[2016-08-13] MEDS: GABAPENTIN 300 MG CAP PO SCH ×2 (16:31→21:16)
[2016-08-13] MEDS: oxyCODONE IR 5 MG TAB PO PRN ×2 (18:03→22:13)
[2016-08-13] MEDS: CYCLOBENZAPRINE 10 MG TAB PO PRN (18:04)
[2016-08-13] MEDS: FAMOTIDINE 20 MG TAB PO SCH (21:16)
[2016-08-13] MEDS: ceFAZolin 2 GM in D5W 100 ML IV SCH (21:40)
[2016-08-13] MEDS: ZOLPIDEM TARTRATE 5 MG TAB PO PRN (23:32)
[2016-08-14] MEDS: KETOROLAC 30 MG/1 ML SDV IVP SCH ×3 (00:43→11:19)
[2016-08-14] MEDS: traMADol 50 MG TAB PO SCH ×4 (00:44→17:40)
[2016-08-14 05:22] LABS: HEMATOCRIT 26.4 % (38.0-47.0); HEMOGLOBIN 7.9 g/dL (12.6-16.3)
[2016-08-14] MEDS: ACETAMINOPHEN 325 MG TAB PO SCH ×3 (06:02→17:39)
[2016-08-14] MEDS: ceFAZolin 2 GM in D5W 100 ML IV SCH (06:03)
[2016-08-14] MEDS: RIVAROXABAN 10 MG TAB PO SCH (07:47)
[2016-08-14] MEDS: oxyCODONE IR 5 MG TAB PO PRN ×3 (07:47→19:31)
[2016-08-14] MEDS: DOCUSATE SODIUM 100 MG CAP PO SCH (07:48)
[2016-08-14] MEDS: FERROUS SULFATE 140 MG TAB.ER PO SCH (07:48)
[2016-08-14] MEDS: FAMOTIDINE 20 MG TAB PO SCH ×2 (07:48→19:31)
[2016-08-14] MEDS: GABAPENTIN 300 MG CAP PO SCH ×3 (07:48→20:50)
[2016-08-14] MEDS: POLYETHYLENE GLYCOL 3350 17 GM PKT PO SCH ×2 (07:49→20:50)
--- NOTE | 2016-08-14 12:38 | SOAPPROG ---
SOAP Progress Note Assessment/Plan: Assessment: POD #1 Plan: - PT today, she is thinking of going to rehab because of her home setup 08/14/16 12:37 Subjective: Moderate pain, no issues Objective: Vital Signs Temp Pulse Resp BP Pulse Ox 36.7 C 69 18 128/67 H 94 08/14/16 07:29 08/14/16 07:29 08/14/16 07:29 08/14/16 07:29 08/14/16 07:29 Laboratory Results 08/14/16 04:42 08/13/16 08/14/16 08/15/16 05:59 05:59 05:59 Intake Total 2600 Output Total 700 Balance 1900 Dressing CDI, calf NT, 1/5 strength with EHL, 4/5 dorsiflexion, probable injury of peroneal nerve - Time Spent With Patient Time Spent With Patient: 15 - Pending Discharge Pending Discharge Within 24 Hours: No Pending Discharge Within 48 Hours: No ICD10 Worksheet Patient Problems: Problems Problem Status Onset Fusion of spine of cervical region Acute
[2016-08-14] MEDS: ZOLPIDEM TARTRATE 5 MG TAB PO PRN ×2 (20:50→20:51)
[2016-08-14] MEDS: CYCLOBENZAPRINE 10 MG TAB PO PRN (20:50)
[2016-08-15] MEDS: traMADol 50 MG TAB PO SCH ×4 (00:08→18:03)
[2016-08-15] MEDS: ACETAMINOPHEN 325 MG TAB PO SCH ×4 (00:08→18:03)
[2016-08-15] MEDS: oxyCODONE IR 5 MG TAB PO PRN ×5 (02:47→20:54)
[2016-08-15 05:44] LABS: HEMATOCRIT 26.8 % (38.0-47.0)
[2016-08-15] MEDS: DOCUSATE SODIUM 100 MG CAP PO SCH (08:15)
[2016-08-15] MEDS: FAMOTIDINE 20 MG TAB PO SCH ×2 (08:15→20:54)
[2016-08-15] MEDS: FERROUS SULFATE 140 MG TAB.ER PO SCH (08:15)
[2016-08-15] MEDS: GABAPENTIN 300 MG CAP PO SCH ×3 (08:15→20:54)
[2016-08-15] MEDS: POLYETHYLENE GLYCOL 3350 17 GM PKT PO SCH (08:16)
[2016-08-15] MEDS: RIVAROXABAN 10 MG TAB PO SCH (08:16)
--- NOTE | 2016-08-15 13:27 | SOAPPROG ---
SOAP Progress Note Assessment/Plan: Assessment: POD #1 Plan: - PT today, she is thinking of going to rehab because of her home setup - D/C tomorrow 08/14/16 12:37 08/15/16 13:26 Subjective: Pain continues, no other issues Objective: Vital Signs Temp Pulse Resp BP Pulse Ox 36.7 C 79 18 146/61 H 90 L 08/15/16 12:00 08/15/16 12:00 08/15/16 12:00 08/15/16 12:00 08/15/16 12:00 Laboratory Results 08/15/16 04:46 08/14/16 08/15/16 08/16/16 05:59 05:59 05:59 Intake Total 2600 400 Output Total 700 1250 Balance 1900 -850 Wound CDI, moderate swelling and bruising lower leg, no evidence of DVT, NVI - Time Spent With Patient Time Spent With Patient: 15 - Pending Discharge Pending Discharge Within 24 Hours: No Pending Discharge Within 48 Hours: Yes Pending Discharge Date: 08/17/16 Pending Discharge Time: 11:00 ICD10 Worksheet Patient Problems: Problems Problem Status Onset Chronic Disease Mgmt/Transitional Care Acute Fusion of spine of cervical region Acute
[2016-08-15 16:30] VITALS: RESP 16
[2016-08-15] MEDS: ZOLPIDEM TARTRATE 5 MG TAB PO PRN (20:53)
[2016-08-15] MEDS: CYCLOBENZAPRINE 10 MG TAB PO PRN (20:54)
[2016-08-16] MEDS: ACETAMINOPHEN 325 MG TAB PO SCH ×2 (00:59→05:28)
[2016-08-16] MEDS: traMADol 50 MG TAB PO SCH ×2 (00:59→05:27)
[2016-08-16 07:16] VITALS: BP 125/63; PULSE 80; TEMP 98.2; O2SAT 95
[2016-08-16] MEDS: GABAPENTIN 300 MG CAP PO SCH (08:20)
[2016-08-16] MEDS: FERROUS SULFATE 140 MG TAB.ER PO SCH (08:20)
[2016-08-16] MEDS: oxyCODONE IR 5 MG TAB PO PRN (08:20)
[2016-08-16] MEDS: RIVAROXABAN 10 MG TAB PO SCH (08:20)
[2016-08-16] MEDS: DOCUSATE SODIUM 100 MG CAP PO SCH (08:20)
[2016-08-16] MEDS: POLYETHYLENE GLYCOL 3350 17 GM PKT PO SCH (08:20)
[2016-08-16] MEDS: FAMOTIDINE 20 MG TAB PO SCH (08:20)
--- NOTE | 2016-08-16 08:29 | SOAPPROG ---
SOAP Progress Note Assessment/Plan: Assessment: POD #3 Plan: D/C to rehab 08/14/16 12:37 08/15/16 13:26 08/16/16 08:29 Subjective: Pain improved, no issues Objective: Vital Signs Temp Pulse Resp BP Pulse Ox 36.8 C 80 16 125/63 H 95 08/16/16 07:15 08/16/16 07:15 08/16/16 07:15 08/16/16 07:15 08/16/16 07:15 Laboratory Results 08/15/16 04:46 08/15/16 08/16/16 08/17/16 05:59 05:59 05:59 Intake Total 400 300 Output Total 1250 1300 Balance -850 -1000 Dressing CDI, no dvt, nvi - Time Spent With Patient Time Spent With Patient: 10 - Pending Discharge Pending Discharge Within 24 Hours: Yes Pending Discharge Within 48 Hours: No Pending Discharge Date: 08/17/16 Pending Discharge Time: 11:00 ICD10 Worksheet Patient Problems: Problems Problem Status Onset Chronic Disease Mgmt/Transitional Care Acute Fusion of spine of cervical region Acute
--- NOTE | 2016-08-16 08:34 | PDIAF ---
- Diagnosis Code Status: Full Code - Medication Management Discharge Medications: Medications to Continue on Transfer Gabapentin [Neurontin 300 MG (*)] 300 mg PO TID 07/26/16 [Last Taken 08/12/16 18 :00] Melatonin [Melatonin 3 MG (*)] 3 mg PO HS PRN 07/26/16 [Last Taken 08/12/16] Polyethylene Glycol 3350 [Miralax 17 gm (*)] 17 gm PO DAILY 07/26/16 [Last Taken 08/12/16] Zolpidem Tartrate [Ambien 5MG (*)] 5 - 10 mg PO HS PRN 07/26/16 [Last Taken ] oxyCODONE IR [Oxycodone Ir (*)] 5 mg PO Q6H PRN 07/26/16 [Last Taken 08/12/16 21 :00] Acetaminophen [Tylenol 325mg (*)] 650 mg PO Q6HRS #0 tab 08/16/16 [Last Taken Unknown] Diphenoxylate HCl/Atrop Sulf [Lomotil Tab (*)] 1 tab PO QID PRN #0 tab 08/16/16 [Last Taken Unknown] Docusate Sodium [Colace 100 MG (*)] 100 mg PO DAILY #0 cap 08/16/16 [Last Taken Unknown] Famotidine [Pepcid 20 MG (*)] 20 mg PO BID #0 tab 08/16/16 [Last Taken Unknown] Rivaroxaban [Xarelto 10mg (*)] 10 mg PO DAILY #0 tab 08/16/16 [Last Taken Unknown] diphenhydrAMINE [Benadryl 25 MG (*)] 25 mg PO Q4HRS PRN #0 cap 08/16/16 [Last Taken Unknown] oxyCODONE IR [Oxycodone Ir (*)] 5 - 15 mg PO Q4H PRN #0 tab 08/16/16 [Last Taken Unknown] traMADol [Ultram 50 mg (*)] 50 mg PO Q6HRS #0 tab 08/16/16 [Last Taken Unknown] Discharge Medications: Refer to the Discharge Home Medication list for PRN reason. PICC Care - Routine: N/A - Orders Services needed: Physical Therapy Diet Recommendation: no restrictions on diet Diet Texture: Regular Texture Diet Goodwin: Not applicable Zoltan Stockings Discontinue Date: 08/26/16 Wound Care Instructions: change dressing as needed Activity/Weight Bearing Restrictions: WBAT - Follow Up Care Current Providers and Referrals: MAXINE HAAS [Primary Care Provider] -
== END 2016-08-16 11:16 | DRG 470 ==
LOC: F3E 05:30 → F3N 05:35 → EDSTATUS 07:15 → F3N 11:24
PROVIDERS: ADMIT Orthopaedic Surgery; ATTEND Orthopaedic Surgery
PROC: 0SRC0J9 Replacement of Right Knee Joint with Synthetic Substitute, Cemented, Open Approach (ICD-10-PCS; principal; 2016-08-13 07:15)
DX: M17.11 Unilateral primary osteoarthritis, right knee (principal); I10 Essential (primary) hypertension
CPT/HCPCS: 97110-GP; 97116-GP; 97161-GP; 97166-GO; 97530-GP; 97535-GO; C1713; G8978-GP-CK; G8979-GP-CI; G8987-GO-CK; G8988-GO-CI; G8989-GO-CJ; J0171; J0690; J1100; J1170; J1885; J2001; J2250; J2405; J2550; J2704; J2795; J3010; L1832

== ENCOUNTER → 2016-09-25 | Outpatient (CLI) | payer OTHER, MEDICARE | LOC: FIMAGING 11:52 | PROVIDERS: ATTEND Physician Assistant Surgical | DX: Z09 Encounter for follow-up examination after completed treatment for conditions other than malignant neoplasm (principal); Z98.1 Arthrodesis status; M50.30 Other cervical disc degeneration, unspecified cervical region ==

== ENCOUNTER → 2016-09-30 | Outpatient (CLI) | payer OTHER, MEDICARE | LOC: FIMAGING 11:29 | PROVIDERS: ATTEND Family Medicine | DX: Z12.31 Encounter for screening mammogram for malignant neoplasm of breast (principal) | CPT/HCPCS: G0202 ==